=== PATIENT | male | born 1940 | race Asian ===

== ENCOUNTER 2023-10-03 20:20 | Inpatient (IN) | payer MEDICARE, SELFPAY ==
[2023-10-03 17:49] VITALS: BP 124/90
--- NOTE | 2023-10-03 18:09 | EDRN ---
Desire HASKINS in room w/ pt at this time.
--- NOTE | 2023-10-03 18:10 | ED.GENMED ---
History of Present Illness
<Omaira Diaz, BINDERY OPERATOR - Last Filed: 10/04/23 02:58>
General
Chief Complaint: Breathing Problem
Source: patient and family (Daughter at bedside)
Time Seen by Provider: 10/03/23 18:04
Nursing documentation reviewed up to this point in time: agreed with
Travel History
Have you had any contact with someone who has COVID-19?: No
Do you have any symptoms of coronavirus? Fever > 100 degrees, chills, cough, shortness of breath, sore throat, loss of taste or smell, muscle aches, or headache?: Yes
Symptoms:: SOB
History of Present Illness
History of Present Illness:
83-year-old male with history of HTN, no cardiac history, who lives in [place] is visiting his daughter who just had a baby. He plans on staying for 2 months. He has had a cough, sneezing for the past week. Two hours ago, developed onset of
worsening shortness of breath and mid chest pressure. At this time he is saying he has pressure in his chest. He denies N/V/D/C. Denies abdominal pain.
Past History
<Omaira Diaz, BINDERY OPERATOR - Last Filed: 10/04/23 02:58>
Past History
ED Past Medical History: HTN and Other (BPH)
ED Past Surgical History: Cholecystectomy
Social History
Tobacco: Non-smoker
Alcohol: None
Personal:
Living: with family
Employment: Retired
Review of Systems
<Omaira Diaz, BINDERY OPERATOR - Last Filed: 10/04/23 02:58>
Review of Systems
Allergies reviewed?: Yes
All Other Systems: ROS reviewed and negative except as documented in HPI and ROS
Constitutional: Reports fatigue; Denies fever
Respiratory: Reports trouble breathing
Cardiac: Reports chest pain
ABD/GI: Denies abdominal pain, nausea, vomiting or diarrhea
: Denies dysuria, frequency, difficulty voiding or urgency
Musculoskeletal: Reports no symptoms
Skin: Reports no symptoms
Neurological: Reports no symptoms
Phy Exam
<Omaira Diaz BINDERY OPERATOR - Last Filed: 10/04/23 02:58>
Physical Exam
Physical Exam:
GENERAL: Mild to moderate distress distress with shortness of breath. A&Ox3.
CONSTITUTIONAL: Afebrile.
EYES: PERRL, conjunctivae normal
Neck: Supple
ENMT: moist mucus membranes, Pharynx nl
RESPIRATORY: Regular respirations, labored, lungs clear. Pulse ox 95% room air
CARDIOVASCULAR: Regular rate and rhythm, tachycardic with a rate of 115, no murmurs, no rubs.
GI: Soft, nontender, normal BS
MUSCULOSKELETAL: Moves with ease. Well perfused. No edema
SKIN: Warm, dry, pink
PSYCH: Anxious mood and affect. Well kept, interactive and appropriate
NEUROLOGIC: Awake, alert and oriented. No focal neurological deficits
Scores
<Omaira Diaz, BINDERY OPERATOR - Last Filed: 10/04/23 02:58>
Heart Failure Risk
Heart Failure Risk Score: Yes
History of Stroke or TIA: No
History of intubation for respiratory distress: No
Heart rate on ED arrival >/= 110: Yes
SaO2 <90% on arrival on room air: No
HR >/=110 during 3min walk test (or too ill to perform test): Yes
ECG has acute ischemic changes: No
Urea >/=12mmol/L (BUN 33.6mg/dL): No
Serum CO2>/=35mmol/L: No
Troponin I or T elevated to [place] Level (0.4mg/dL): No
NT-proBNP >/=5,000ng/L (5,000pg/ml): No
HF Risk Score: 2
Admission Status: MEDIUM RISK 9.2% Consider observation or discharge to home with homecare & f/u visit to PCP/Social Insurance Analyst, or SNF for treatment
Course
<Omaira Diaz NP - Last Filed: 10/04/23 02:58>
Orders/Labs/Results
Orders:
Orders
10/03/23 17:53
EKG [Electrocardiogram (*1)] Urgent
Reason for Study: Shortness of Breath
EKG- Treatment ONCE
10/03/23 18:11
CR Chest Portable - 1 View Urgent
Comment:
Reason For Exam: CP, SOB
Reason Study Needs to be Portable: Patient Unstable
10/03/23 18:14
Complete Blood Count/With Diff Urgent
Comprehensive Metabolic Panel Urgent
NT-proBNP Urgent
PTT Urgent
Prothrombin Time Urgent
TSH Urgent
Troponin I Q3H
10/03/23 18:21
COVID-19 Antigen Urgent
Source: Nasal Swab
Influenza A+B Rapid Molecular Urgent
GIULIA Source: Nasal Swab
Specimen Description:
10/03/23 18:22
Aspirin Chewable [Low Strength Aspirin] 324 mg PO NOW STA
Nitroglycerin Sublingual [Nitrostat (Sublingual)] 0.4 mg SL NOW STA
10/03/23 18:25
0.9% Sodium Chloride 500 ml [Nss] 500 ml IV BOLUS
10/03/23 19:09
Furosemide [Lasix] 40 mg IV NOW STA
10/03/23 20:04
Ipratropium/Albuterol Sulfate [Duoneb] 3 ml INH R NOW ONE
10/03/23 20:05
Admit/Transfer Patient As Directed
Co-Sign Provider:
Level of Care: Inpatient admission
Assign to:: IMU- Intermediate Care
Physician / Group: Colin
Diagnosis: Atypical Pneumonia
Reason for Hospitalization: Atypical Pneumonia
Expected length of stay greater than two midnights?: Yes
ELOS- Estimated Length of Stay in days: 3
I certify the patient meets the requirements for IP care: Yes
CefTRIAXone [Rocephin] 1,000 mg IV NOW STA
Doxycycline Hyclate [Vibramycin] 100 mg 0.9% Sodium Chloride 250 ml [Nss] 250 ml IV NOW
Sterile Water [Sterile Water For Injection] 10 ml IV NOW STA
10/03/23 20:06
Code Status As Directed
Resuscitation Status: Full Code
10/03/23 21:23
Troponin I Q3H
10/03/23 22:05
Acetaminophen [Tylenol] 650 mg PO Q4HPRN PRN
Albuterol Nebs [Ventolin Nebules] 2.5 mg INH R Q4HPRN PRN
10/03/23 22:05
Activity As Directed
Activity Level: Ambulate
With Assistance
Bladder Scan As Directed
Follow Bladder Retention/Intermittent Cath Algorithm?: Yes
PRN if no void in __ hours: 6
Frequency: Per Retention Algorithm
If Bladder Scan Result >: 400
then:: Straight cath
EKG with chest pain [ECG as needed] As Directed
ECG as needed for:: Chest Pain
I/O [Intake/ Output] As Directed
Frequency: Per unit guidelines
Straight Cath As Directed
Frequency: Per Retention Algorithm
Additional Instructions: straight cath as needed per acute urinary retention algorithm for 24 hrs
Additional Instructions: for bladder scan greater than 400 mL
Vital Signs As Directed
Frequency: Per unit guidelines
Weight As Directed
Frequency: Daily
Chest PT [Rx Chest Pt] [RESP] Routine
Special Instructions: BID
Oxygen Therapy [O2 Therapy] [RESP] Routine
Titrate/Wean O2 to maintain O2 sat greater than (%): 94
Rx Incentive Spirometry [RESP] Routine
Frequency: q1h while awake
Ot Eval And Treat Routine
PT Consult [Pt Eval And Treat] Routine
Activity Level: Ambulate
With Assistance
DX Deep Vein Thrombosis Video Routine
10/04/23 04:05
Troponin I Q6H
10/04/23 06:00
EKG [Electrocardiogram (*1)] IN AM
Reason for Study: Chest Pain
Regular
At Your Request: Limited Participation
Fluid Restriction: 1440 mL/day (48 oz)
Basic Metabolic Panel IN AM
Complete Blood Count/No Diff IN AM
10/04/23 08:00
Amlodipine [Norvasc] 10 mg PO DAILY
Doxycycline [Vibramycin] 100 mg PO Q12
Guaifenesin [Mucinex] 1,200 mg PO Q12
10/04/23 18:00
Enoxaparin Sodium [Lovenox] 40 mg SC QPM
Tamsulosin [Flomax] 0.4 mg PO QPM
10/04/23 20:00
CefTRIAXone [Rocephin] 1,000 mg IV Q24H
10/06/23 11:00
DC Protocol for Telemetry ONCE
Abnormal Lab Results
10/03/23
18:14
WBC 11.0 H 10^3/uL
(4.8-10.8)
RBC 4.66 L 10^6/uL
(4.70-6.10)
Absolute Neuts (auto) 8.4 H 10^3/uL
(1.4-6.5)
Absolute Monos (auto) 0.7 H 10^3/uL
(0.1-0.6)
Neutrophils % 76.1 H %
(42.2-75.2)
Lymphocytes % 14.9 L %
(20.5-51.1)
Carbon Dioxide 19 L mmol/L
(22-30)
Glucose 139 H mg/dl
(70-99)
10/03/23 18:14
10/03/23 18:14
Vital Signs
Initial and Last Documented VS:
Initial Vital Signs
Temp Pulse Resp BP Pulse Ox
97.4 F 117 30 124/90 95
10/03/23 17:49 10/03/23 17:49 10/03/23 17:49 10/03/23 17:49 10/03/23 17:49
Last Documented Vital Signs
Temp Pulse Resp BP Pulse Ox
98.3 F 110 23 139/79 97
10/03/23 23:27 10/03/23 21:45 10/03/23 21:45 10/03/23 21:00 10/03/23 22:07
Seismic Prospecting Supervisor consulted with Physician
Seismic Prospecting Supervisor consulted with physician?: Yes
Name of Physician Consulted: Geraldo
<Piyush Chow, DO - Last Filed: 10/03/23 20:29>
Orders/Labs/Results
Orders:
Orders
10/03/23 17:53
EKG [Electrocardiogram (*1)] Urgent
Reason for Study: Shortness of Breath
EKG- Treatment ONCE
10/03/23 18:11
CR Chest Portable - 1 View Urgent
Comment:
Reason For Exam: CP, SOB
Reason Study Needs to be Portable: Patient Unstable
10/03/23 18:14
Complete Blood Count/With Diff Urgent
Comprehensive Metabolic Panel Urgent
NT-proBNP Urgent
PTT Urgent
Prothrombin Time Urgent
TSH Urgent
Troponin I Q3H
10/03/23 18:21
COVID-19 Antigen Urgent
Source: Nasal Swab
Influenza A+B Rapid Molecular Urgent
GIULIA Source: Nasal Swab
Specimen Description:
10/03/23 18:22
Aspirin Chewable [Low Strength Aspirin] 324 mg PO NOW STA
Nitroglycerin Sublingual [Nitrostat (Sublingual)] 0.4 mg SL NOW STA
10/03/23 18:25
0.9% Sodium Chloride 500 ml [Nss] 500 ml IV BOLUS
10/03/23 19:09
Furosemide [Lasix] 40 mg IV NOW STA
10/03/23 20:04
Ipratropium/Albuterol Sulfate [Duoneb] 3 ml INH R NOW ONE
10/03/23 20:05
Admit/Transfer Patient As Directed
Co-Sign Provider:
Level of Care: Inpatient admission
Assign to:: IMU- Intermediate Care
Physician / Group: Colin
Diagnosis: Atypical Pneumonia
Reason for Hospitalization: Atypical Pneumonia
Expected length of stay greater than two midnights?: Yes
ELOS- Estimated Length of Stay in days: 3
I certify the patient meets the requirements for IP care: Yes
CefTRIAXone [Rocephin] 1,000 mg IV NOW STA
Doxycycline Hyclate [Vibramycin] 100 mg 0.9% Sodium Chloride 250 ml [Nss] 250 ml IV NOW
Sterile Water [Sterile Water For Injection] 10 ml IV NOW STA
10/03/23 20:06
Code Status As Directed
Resuscitation Status: Full Code
10/03/23 21:23
Troponin I Q3H
10/03/23 22:05
Acetaminophen [Tylenol] 650 mg PO Q4HPRN PRN
Albuterol Nebs [Ventolin Nebules] 2.5 mg INH R Q4HPRN PRN
10/03/23 22:05
Activity As Directed
Activity Level: Ambulate
With Assistance
Bladder Scan As Directed
Follow Bladder Retention/Intermittent Cath Algorithm?: Yes
PRN if no void in __ hours: 6
Frequency: Per Retention Algorithm
If Bladder Scan Result >: 400
then:: Straight cath
EKG with chest pain [ECG as needed] As Directed
ECG as needed for:: Chest Pain
I/O [Intake/ Output] As Directed
Frequency: Per unit guidelines
Straight Cath As Directed
Frequency: Per Retention Algorithm
Additional Instructions: straight cath as needed per acute urinary retention algorithm for 24 hrs
Additional Instructions: for bladder scan greater than 400 mL
Vital Signs As Directed
Frequency: Per unit guidelines
Weight As Directed
Frequency: Daily
Chest PT [Rx Chest Pt] [RESP] Routine
Special Instructions: BID
Oxygen Therapy [O2 Therapy] [RESP] Routine
Titrate/Wean O2 to maintain O2 sat greater than (%): 94
Rx Incentive Spirometry [RESP] Routine
Frequency: q1h while awake
Ot Eval And Treat Routine
PT Consult [Pt Eval And Treat] Routine
Activity Level: Ambulate
With Assistance
DX Deep Vein Thrombosis Video Routine
10/04/23 04:05
Troponin I Q6H
10/04/23 06:00
EKG [Electrocardiogram (*1)] IN AM
Reason for Study: Chest Pain
Regular
At Your Request: Limited Participation
Fluid Restriction: 1440 mL/day (48 oz)
Basic Metabolic Panel IN AM
Complete Blood Count/No Diff IN AM
10/04/23 08:00
Amlodipine [Norvasc] 10 mg PO DAILY
Doxycycline [Vibramycin] 100 mg PO Q12
Guaifenesin [Mucinex] 1,200 mg PO Q12
10/04/23 18:00
Enoxaparin Sodium [Lovenox] 40 mg SC QPM
Tamsulosin [Flomax] 0.4 mg PO QPM
10/04/23 20:00
CefTRIAXone [Rocephin] 1,000 mg IV Q24H
10/06/23 11:00
DC Protocol for Telemetry ONCE
Abnormal Lab Results
10/03/23
18:14
WBC 11.0 H 10^3/uL
(4.8-10.8)
RBC 4.66 L 10^6/uL
(4.70-6.10)
Absolute Neuts (auto) 8.4 H 10^3/uL
(1.4-6.5)
Absolute Monos (auto) 0.7 H 10^3/uL
(0.1-0.6)
Neutrophils % 76.1 H %
(42.2-75.2)
Lymphocytes % 14.9 L %
(20.5-51.1)
Carbon Dioxide 19 L mmol/L
(22-30)
Glucose 139 H mg/dl
(70-99)
10/03/23 18:14
10/03/23 18:14
Vital Signs
Initial and Last Documented VS:
Initial Vital Signs
Temp Pulse Resp BP Pulse Ox
97.4 F 117 30 124/90 95
10/03/23 17:49 10/03/23 17:49 10/03/23 17:49 10/03/23 17:49 10/03/23 17:49
Last Documented Vital Signs
Temp Pulse Resp BP Pulse Ox
98.3 F 110 23 139/79 97
10/03/23 23:27 10/03/23 21:45 10/03/23 21:45 10/03/23 21:00 10/03/23 22:07
<Omaira Diaz NP - Last Filed: 10/04/23 02:58>
MDM/Problems Addressed
Differential Diagnosis Includes:
UT, CHF, PNA, Covid
MDM/Problems Addressed:
83-year-old male with history of HTN, no cardiac history, who lives in [place] is visiting his daughter who just had a baby. He plans on staying for 2 months. He has had a cough, sneezing for the past week. Two hours ago, developed onset of
worsening shortness of breath and mid chest pressure. At this time he is saying he has pressure in his chest. He denies N/V/D/C. Denies abdominal pain.
EKG: Tachycardia, LBBB
Consulted Dr. Chow who read EKG
EKG sent to Cardiology Dr. Bergman who agrees, no STEMI
10/03/2023 1908 PM
Patient states his chest pain is about 50% relieved after nitroglycerin
CBC without clinically significant abnormality
CMP with no clinically significant abnormality
Troponin #1 normal
BNP 2019
10/03/2023 1934 PM
Chest x-ray consistent with CHF, new onset
Hospitalist notified of admission
10/03/20232022 PM
RN reports patient diaphoretic and restless, tachycardic
Arrived to find patient very anxious, moving around in the bed, heart rate 126 and regular on the monitor, pulse ox 95% while he is getting a nebulization treatment via oxygen mask
Dr. Chow at bedside
Respiratory therapy in to apply BiPAP
Patient vacillating between being extremely anxious and restless and diaphoretic to more calm, maintaining oxygen at 95% the entire time.
Ativan 0.5 mg ordered
Critical care statement: A total of 40 minutes of critical care time was provided for this patient. This includes management of unstable vital signs, evaluation of the patient at bedside, reviewing the patient's pertinent medical records, discussion
with consultants, review of old EKGs and review of pertinent medical records. This time with separate from time utilized to perform the aforementioned documented procedures
Daughter at bedside states 'he would want everything done' when asked if he would want to be intubated if needed.
10/03/20232041 PM
After BiPAP applied, Ativan given, patient appears much more calm, heart rate improving at 112 continues to be well oxygenated.
Admit to IMU
Chronic conditions affecting care: HTN
<Omaira Diaz NP - Last Filed: 10/04/23 02:58>
*Critical Care Note
Total Time (30-74mins, 75-104mins- exclusive of procedures): Not Applicable
<Omaira Diaz, BINDERY OPERATOR - Last Filed: 10/04/23 02:58>
Patient Management
Social determinants of health affecting care: Strong social support
ED Attending Note
<Omaira Diaz, BINDERY OPERATOR - Last Filed: 10/04/23 02:58>
-
Portions of this chart may have been created with voice recognition software.� Occasional wrong word or��sound alike� substitutions may have occurred due to the inherent limitations of voice recognition software.
<Piyush Chow DO - Last Filed: 10/03/23 20:29>
ED Attending Note
Patient seen and examined by attending physician: Yes
ED Attending Note:
I have reviewed and agree with history and treatment plan by Jessica diaz. Patient with acute CHF, bilateral pulmonary edema. Patient had episode of worsening, which improved somewhat, but will place him on BiPAP. Hospitalist has admitted patient.
Discharge Plan
Departure
Patient Disposition: Admit
Date of Disposition: 10/03/23
Time of Disposition: 19:33
Admit to: IMU
Presentation/result/management discussed w/ accepting MD/DO: Hospitalist
Condition: Fair
Covid-19: Negative COVID-19
Discharge Problem:
New onset of congestive heart failure
Interventions
Interventions:
*Risk Screen - Suicide Last Done: 10/03/23 22:50
*General Assessment Last Done: 10/03/23 17:49
*Neglect/Abuse Screening Last Done: 10/03/23 22:09
ED- Fall Risk Assessment Last Done: 10/03/23 19:46
*ED COVID-19 Vaccine History Last Done: 10/03/23 22:50
*Nursing Disposition Last Done: 10/03/23 22:09
ED- Cardiac Assessment Last Done: 10/03/23 19:46
ED- Pulmonary Assessment Last Done: 10/03/23 19:46
Discharge Date and Time
Discharge Date/Time: 10/03/23 22:10
[2023-10-03 18:26] LABS: % Basophils 1.1 % (0-2); % Eosinophils 1.5 % (0-6); % Immature Granulocytes 0.3 % (0-0.5); % Lymphocytes 14.9 % (20.5-51.1); % Monocytes 6.1 % (1.7-9.3); % Neutrophils 76.1 % (42.2-75.2); Absolute Basophils 0.1 10^3/uL (0-0.2); Absolute Eosinophils 0.2 10^3/uL (0-0.7); Absolute Lymphocytes 1.6 10^3/uL (1.2-3.4); Absolute Monocytes 0.7 10^3/uL (0.1-0.6); Absolute Neutrophils 8.4 10^3/uL (1.4-6.5); Hematocrit 42.1 % (39.0-52.0); Hemoglobin 14.4 g/dL (13.0-18.0); Mean Corp Hgb Conc. 34.2 g/dL (33.0-37.0); Mean Corpuscular Hgb 30.9 pg (27.0-31.0); Mean Corpuscular Volume 90.3 fL (80.0-94.0); Mean Platelet Volume 9.6 fL (7.4-10.4); Nucleated Red Blood Cells % 0 % (-); Platelet Count 243 10^3/uL (130-400); Red Blood Cell Count 4.66 10^6/uL (4.70-6.10); Red Cell Dist. Width 13.5 % (11.5-14.5)
[2023-10-03] MEDS: NSS 500 IV (18:30)
[2023-10-03] MEDS: NITROSTAT (SUBLINGUAL) 0.400000000000000022 MG SL (18:31)
[2023-10-03] MEDS: LOW STRENGTH ASPIRIN 324 MG PO (18:31)
[2023-10-03 18:39] LABS: INR 1.03; PT 13.3 Sec (11.4-14.6)
[2023-10-03 18:40] LABS: APTT 28.6 Sec (23.4-35.0)
[2023-10-03 18:43] LABS: ALT (SGPT) 32 U/L (0-50); AST (SGOT) 46 U/L (17-59); Albumin 4.1 g/dl (3.5-5.0); Alkaline Phosphatase 110 U/L (38-126); Blood Urea Nitrogen 13 mg/dl (9-20); Calcium 8.7 mg/dl (8.4-10.2); Carbon Dioxide 19 mmol/L (22-30); Chloride 106 mmol/L (98-107); Glucose 139 mg/dl (70-99); Potassium 3.6 mmol/L (3.5-5.1); Sodium 135 mmol/L (135-145); Total Bilirubin 1.2 mg/dl (0.2-1.3); Total Protein 7.1 g/dl (6.3-8.2); eGFR > 60.00
[2023-10-03 18:46] LABS: NT-proBNP 2020 pg/ml; Troponin I < 0.012 ng/ml
[2023-10-03 18:51] LABS: COVID-19 Antigen Negative (Negative)
[2023-10-03 19:00] VITALS: BP 142/86
[2023-10-03 19:10] LABS: TSH 3.01 uIU/ml (0.47-4.68)
[2023-10-03 19:33] VITALS: BP 133/80
[2023-10-03] MEDS: LASIX 40 MG IV (19:34)
[2023-10-03 20:00] VITALS: BP 138/84
--- NOTE | 2023-10-03 20:09 | HPS.HSE ---
Family Physician
-
Family Physician: NOT KNOW UNKNOWN - PT DOES
Chief Complaint
-
SOB
History of Present Illness
Patient is an 83y M with PMH significant for hypertension who presents to ED complaining of cough and SOB. History obtained from patient and family at the bedside. Patient is very [place] and family assists with providing recent history. Patient
has been dealing with 'cold symptoms' for the past week or so including runny nose, cough, mucus production, etc. He is visiting the area from [place] for the of a grandchild. This evening, patient complained of difficulty breathing and sensation
of chest 'tightness'. He presented to the ED for further evaluation. He has noted audible wheezing at the bedside and mild respiratory distress at the moment.
Patient denies any associated GI symptoms, complaints, fevers / chills, etc.
No known sick contacts.
Medical History
Past Medical History
Past Medical History: Reports Other
Additional Past Medical History:
Hypertension
Hearing Loss
Past Surgical History: Reports Other
Additional Past Surgical History:
Cataracts
Cholecystectomy
Social History
Tobacco: Non-smoker
Alcohol: Occasional
Drug: None
Family History
Family History: Not pertinent
Allergies / Home Medications
Allergies reflects when Allergies were last updated in [facility].
Home Medications with original date entered in [facility]
Allergy/Medication List:
Allergies
Allergy/AdvReac Type Severity Reaction Status Date / Time
No Known Allergies Allergy Unverified 10/03/23 17:52
Home Medications
acetaminophen 325 mg tablet 650 mg PO HS 10/03/23
amlodipine 5 mg tablet 10 mg PO DAILY 10/03/23
[id number]-YN 0.4 mg-calcium 162 mg-iron 18 vi-xhvzpup-rrygzo tablet 1 tab PO DAILY 10/03/23
tamsulosin 0.4 mg capsule 0.4 mg PO QPM 10/03/23
Review of Systems
-
History Source: Patient and Family
A 12 point ROS was completed and negative except as noted: Yes
Constitutional: Reports Fatigue; Denies Fever or Chills
EENT: Reports Sore Throat and Runny Nose
Respiratory: Reports Cough and Trouble Breathing; Denies Hemoptysis
Cardiac: Reports Chest Pain; Denies Diaphoresis, Palpitations or Syncope
Abdomen/GI: Denies Abdominal Pain, Nausea, Vomiting or Diarrhea
: Denies Dysuria, Frequency or Flank Pain
Musculoskeletal: Denies Joint Pain or Edema
Neurological: Reports Headache; Denies Dizzy
Psych: Denies Depression or Anxiety
Physical Exam
Vital Signs
Vital Signs
Temp Pulse Resp BP Pulse Ox
97.4 F 100 30 133/80 95
10/03/23 17:49 10/03/23 19:34 10/03/23 17:49 10/03/23 19:34 10/03/23 17:49
Physical Exam
General: Other (83y M in mild respiratory distress with audible wheezing at the bedside.)
HEENT: Moist mucous membranes and PERRLA
Respiratory: Other (Coarse expiratory breath sounds diffusely and audible wheezing. No rales.)
Cardiac: S1/S2, Regular Rhythm and Tachycardia; No Murmur
GI: Soft, Non Tender, Non Distended and Normal Bowel Sounds
Musculoskeletal: No Clubbing, No Cyanosis and No Edema
Neuro: AO x 3
Laboratory Results
-
10/03/23 18:14
10/03/23 18:14
Laboratory Results
PT 13.3 Sec (11.4-14.6) 10/03/23 18:14
INR 1.03 10/03/23 18:14
APTT 28.6 Sec (23.4-35.0) 10/03/23 18:14
Total Bilirubin 1.2 mg/dl (0.2-1.3) 10/03/23 18:14
AST 46 U/L (17-59) 10/03/23 18:14
ALT 32 U/L (0-50) 10/03/23 18:14
Alkaline Phosphatase 110 U/L (38-126) 10/03/23 18:14
Troponin I < 0.012 ng/ml 10/03/23 18:14
Impression/Plan
-
A/P: Patient is an 83y M with PMH significant for hypertension who presents to ED complaining of SOB and chest tightness after one week of cold symptoms.
Atypical Pneumonia
- Admit for further evaluation and treatment.
- Patient presents with one week of cold symptoms, coarse expiratory sounds on exam and mild leukocytosis with left shift.
- Clinical history suggestive of atypical pneumonia > CHF. No exam evidence of volume overload.
- IV abx for now for atypical bacteria v viral pneumonia.
- COVID / Influenza negative in the ED.
- Supportive care including nebs, mucolytics, O2 support, etc.
- Follow for clinical improvement.
Chest Tightness
- Suspect this is secondary to cough / congestion as noted above.
- Initial troponin is undetectable - will continue to trend.
- EKG with sinus tach and no acute ischemic changes.
- Monitor for any new / worsening symptoms.
Benign Hypertension
- Stable. Continue amlodipine with holding parameters.
DVT Prophylaxis: Lovenox
Code Status: Full
[2023-10-03] MEDS: DUONEB 3 ML INH (20:16)
[2023-10-03 20:27] VITALS: PULSE 120; PULSE 2
[2023-10-03] MEDS: ROCEPHIN 1000 MG IV (20:30)
[2023-10-03] MEDS: ATIVAN 0.5 MG IV (20:30)
[2023-10-03] MEDS: STERILE WATER FOR INJECTION 10 ML IV (20:37)
[2023-10-03] MEDS: VIBRAMYCIN 260 MG IV (20:41)
[2023-10-03 21:00] VITALS: BP 139/79
[2023-10-03 22:04] LABS: Troponin I 0.026 ng/ml
--- NOTE | 2023-10-03 23:55 | PTCARENOTE ---
Received Pt from ED RN and RT. Pt on BIPAP 10/6 on 3L appeared to be tolerating well, SPO2@ 97%. Pt Granddaughter at bed side to help with language barrier and better communication. Assessment care and vitals as documented.
[2023-10-04] VITALS (14 sets, daily range): BP systolic 109–142; BP diastolic 65–90; PULSE 2–129; O2SAT 94; BMI 25.8
[2023-10-04 05:20] LABS: Hematocrit 41.1 % (39.0-52.0); Hemoglobin 13.9 g/dL (13.0-18.0); Mean Corp Hgb Conc. 33.8 g/dL (33.0-37.0); Mean Corpuscular Hgb 30.2 pg (27.0-31.0); Mean Corpuscular Volume 89.2 fL (80.0-94.0); Mean Platelet Volume 9.8 fL (7.4-10.4); Platelet Count 249 10^3/uL (130-400); Red Blood Cell Count 4.61 10^6/uL (4.70-6.10); Red Cell Dist. Width 13.2 % (11.5-14.5); White Blood Cell Count 9.9 10^3/uL (4.8-10.8)
[2023-10-04 05:37] LABS: Troponin I 0.033 ng/ml
[2023-10-04 05:43] LABS: Blood Urea Nitrogen 11 mg/dl (9-20); Calcium 8.1 mg/dl (8.4-10.2); Carbon Dioxide 20 mmol/L (22-30); Chloride 107 mmol/L (98-107); Estimated Creatinine Clearance 56 ml/min; Glucose 98 mg/dl (70-99); Potassium 3.5 mmol/L (3.5-5.1); Sodium 137 mmol/L (135-145); eGFR > 60.00
--- NOTE | 2023-10-04 07:18 | W.PN.HOSP.TC ---
Today's Communication/Plan
-
Xopenex scheduled and PRN
Robitussin DM and Tessalon prn added for cough
Cardio eval requested
cont abx
check CT chest
Assessment / Plan
Assessment / Plan
Physical Exam
General: No acute distress resting comfortably in bed
HEENT: Moist mucous membranes and PERRLA
Respiratory: Expiratory Wheeze on nasal cannula 3L coughing
Cardiac: S1/S2 Tachycardia; No Murmur, distant heart sounds
GI: Soft, Non Tender, Non Distended and Normal Bowel Sounds
Musculoskeletal: No Clubbing, No Cyanosis and No Edema
Neuro: Alert Awake Conversant
A/P:� Patient is an 83y M with PMH significant for hypertension who presents to ED complaining of SOB and chest tightness after one week of cold symptoms.
Atypical Pneumonia
Acute Hypoxic Insufficiency/Failure
Bronchospastic wheezing possible COPD exacerbation (no hx COPD noted)
�- Admitted to IMU. on BIPAP overnight, requiring 3L NC not on oxygen at home
�- IV abx for now for atypical bacteria v viral pneumonia.
�- COVID / Influenza negative in the ED.
�- Supportive care including nebs, mucolytics, O2 support
�- Xopenex scheduled and prn
-Check CT Chest for possible PE, intermittently tachy but stable on 3L at this time
-cont abx ceftriaxone doxycycline
-Check Legionella Strep pna urinary antigens
Chest Tightness
�- Suspect this is secondary to cough / congestion as noted above.
�- Troponin neg x 3
�- EKG with sinus tach and no acute ischemic changes.
Possible HF as suggested on CXR and elevated BNP
-appears evulemic however on examination
-BNP elevation may be attributed to infection
-Cardio eval requested
Benign Hypertension
�- Stable.� Continue amlodipine with holding parameters.
DVT Prophylaxis:� Lovenox
GI PPX: protonix
Code Status:� Full
discussed with patient, patient's Granddaughter Madyson, Nurse, and Cardiology
I spent a total of 55 minutes with the patient or on the floor. More than 50% of this time involved counseling and coordination of care.
Anticipated Discharge: 24 - 48 hours
Subjective/Interval History
-
Date of Service: October 04, 2023
Seen and examined at bedside in no acute distress resting comfortably in bed. Reports feeling short of breath, saturating well on 3L oxygen. Granddaughter Madyson present during evaluation providing translation South [place] Tagalog
Objective Data
-
Labs:
Laboratory Results
10/04/23
04:46
WBC 9.9
Hgb 13.9
Hct 41.1
Plt Count 249
Sodium 137
Potassium 3.5
Chloride 107
Carbon Dioxide 20 L
BUN 11
Creatinine 0.8
Glucose 98
Calcium 8.1 L
Vital Signs:
Vital Signs
Temp Pulse Resp BP Pulse Ox
98.9 F 88 18 132/83 97
10/04/23 04:17 10/04/23 06:00 10/04/23 06:00 10/04/23 06:00 10/04/23 06:00
I&O
10/03/23 10/04/23 10/05/23
06:59 06:59 06:59
Intake Total 0 / 0
Output Total 50 / 50
Balance -50 / -50
[2023-10-04] MEDS: MUCINEX 1200 MG PO ×2 (09:07→20:45)
[2023-10-04] MEDS: VIBRAMYCIN 100 MG PO ×2 (09:08→20:45)
[2023-10-04] MEDS: NORVASC 10 MG PO (09:08)
[2023-10-04] MEDS: XOPENEX 0.63 MG INHALANT SOLUTION 0.630000000000000004 MG INH ×3 (09:22→20:44)
--- NOTE | 2023-10-04 10:16 | CON.CAR ---
Addendum entered and electronically signed by Rico Sanchez, 10/04/23 14:48:
Addendum:
Update 1446
Echocardiogram demonstrates global hypokinesis LVEF 20-25%, moderate to severe MR, mild AI, mild-mod TR, PASP 48 mmHg, trivial pericardial effusion, and a pleural effusion. Will continue with IV diuresis. Discontinue amlodipine. Start carvedilol
3.125 mg twice daily and uptitrate as tolerated. Strict I/Os, daily weights. Monitor electrolytes. Recommend [facility] Friday to assess new cardiomyopathy. Further recommendations to follow through hospitalization.
Addendum entered and electronically signed by Rico Sanchez, DO 10/04/23 14:08:
I saw and examined the patient.
The Chassis Wirer's note was reviewed and I agree with the note.
Comment:
Very pleasant 83 year old male predominately Tagalog speaking with a history of BPH and hypertension presenting with shortness of breath. Noted cough, congestion concerning for URI. No cp, edema, pnd, orthopnea, or weakness. BNP >2000, CXR
demonstrating cardiomegaly with increased interstitial markings and small BL effusions; EKG SR/ST with LBBB. Reports improvement with IV diuretic. Notes mild persistent SOB. No CP. No prior cardiac testing or evaluation. Troponin negative x3.
Negative covid and flu.
GEN: NAD. AAOx3 with family in room
HEENT: EOMI, MMM; no JVD appreciated
LUNGS: CTA B/L, no wheezes or rales
CV: Reg, S1/S2, no murmur
ABD: soft, BS+, NT, ND
EXT: No clubbing, cyanosis, lesions; trace edema B/L
NEURO: Gross non-focal
SKIN: Warm, dry and pink. No rash
PCP: In [place], [place]
Cardiology: None prior to admission
Impression:
Acute hypoxemic respiratory insufficiency
Possible AE COPD
Acute HF unknown EF
Chest pain
HTN
LBBB of unknown chronicity
Echo 10/04/23: Study pending
Plan:
-Patient came to [facility] last night with complaints of chest pain and SOB and cardiology is now consulted for possible acute HF. Patient lives in [place], [place], but is staying locally with family for the next 2 months after a new great-grandchild was
born recently. Family reports that he seemed to catch a cold last week with coughing and congestion, but no fevers or SOB. Then last night he started to appear winded and complained of SOB and MOORE. No orthopnea and no edema. Family brought him to
[facility] and initially he was given a neb treatment and felt worse. He was then given Lasix 40 mg IV x1, Ativan and put on BiPAP and family reports that he finally started to feel better. There is no h/o CAD or CHF. NO previous cardiac testing. He
remains symptomatically improved this morning.
-pro-BNP was 2020 without previous for comparison. CXR with small B/L pleural effusions and no obvious consolidation to indicate PNA. No fevers.
-Will manage as acute HF. Will give another dose of Lasix 40 mg IV x1 now; reassess in AM.
-Remains hypoxic on 2 L NC.
-Antibiotics also ordered for possible AE COPD.
-Urgent echo ordered and computer systems technology instructor called in. Results pending. No previous echo
-Chest pain resolved with BiPAP and Lasix. Troponin peaked at 0.031. ECG reviewed by me with LBBB of unknown chronicity.
-Outpatient dose of amlodipine 10 mg daily has been continued for now. Consider adjusting regimen and adding BB and IRENE pending echo
Original Note:
Consultation
Consultation Request
Date/Time Consultation Requested: 10/04/23
Date/Time Consultation Performed: 10/04/23
Requesting Provider: Dr. Louie
Performing Provider: Dr. Sanchez
Reason for Consultation: Acute HF
Medical History
-
History of Present Illness:
Patient came to [facility] last night with complaints of chest pain and SOB and cardiology is now consulted for possible acute HF. Patient lives in [place], [place], but is staying locally with family for the next 2 months after a new great-grandchild was
born recently. Family reports that he seemed to catch a cold last week with coughing and congestion, but no fevers or SOB. Then last night he started to appear winded and complained of SOB and MOORE. No orthopnea and no edema. Family brought him to
[facility] and initially he was given a neb treatment and felt worse. He was then given Lasix 40 mg IV x1, Ativan and put on BiPAP and family reports that he finally started to feel better. There is no h/o CAD or CHF. NO previous cardiac testing. He
remains symptomatically improved this morning.
PMH:
HTN
Past Medical History
Past Medical History: Other (in HPI)
Past Surgical History: Cholecystectomy
Social History
Tobacco: Non-Smoker
Alcohol: Occasional
Allergies / Home Medications
Allergy/AdvReac Type Severity Reaction Status Date / Time
No Known Allergies Allergy Unverified 10/03/23 17:52
Medication Instructions Recorded Confirmed Type
acetaminophen 325 mg tablet 650 mg PO HS Pain 10/03/23 10/03/23 History
amlodipine 5 mg tablet 10 mg PO DAILY Blood Pressure 10/03/23 10/03/23 History
[id number]-[id number] 0.4 mg-calcium 162 1 tab PO DAILY Supplement 10/03/23 10/03/23 History
mg-iron 18 hv-rzhqkbr-wlwgab tablet
tamsulosin 0.4 mg capsule 0.4 mg PO QPM Urinary Issue 10/03/23 10/03/23 History
Review of Systems
-
History Source: Patient and Family (granddaughter sitting bedside helps with HPI)
All other systems: Negative unless noted
Physical Exam
Vital Signs
Temp Pulse Resp BP Pulse Ox
98.1 F 92 21 142/85 96
10/04/23 07:15 10/04/23 09:24 10/04/23 09:24 10/04/23 08:00 10/04/23 09:24
GEN: NAD. AAOx3 per granddaughter sitting bedside
HEENT: EOMI, MMM
LUNGS: CTA B/L, no wheezes or rales
CV: Reg, S1/S2, no murmur
ABD: soft, BS+, NT, ND
EXT: No clubbing, cyanosis, lesions or edema B/L
NEURO: Gross non-focal
SKIN: Warm, dry and pink. No rash
Lab Results
10/04/23 04:46
10/04/23 04:46
Troponin I 0.033 ng/ml D 10/04/23 04:47
Drs-J-Vegzxiiltjh Pept 2020 pg/ml 10/03/23 18:14
Impression / Plan
-
PCP: In [place], [place]
Cardiology: None prior to admission
Impression:
Acute hypoxemic respiratory insufficiency
Possible AE COPD
Acute HF unknown EF
Chest pain
HTN
LBBB of unknown chronicity
Echo 10/04/23: Study pending
Plan:
-Patient came to [facility] last night with complaints of chest pain and SOB and cardiology is now consulted for possible acute HF. Patient lives in [place], [place], but is staying locally with family for the next 2 months after a new great-grandchild was
born recently. Family reports that he seemed to catch a cold last week with coughing and congestion, but no fevers or SOB. Then last night he started to appear winded and complained of SOB and MOORE. No orthopnea and no edema. Family brought him to
[facility] and initially he was given a neb treatment and felt worse. He was then given Lasix 40 mg IV x1, Ativan and put on BiPAP and family reports that he finally started to feel better. There is no h/o CAD or CHF. NO previous cardiac testing. He
remains symptomatically improved this morning.
-pro-BNP was 2020 without previous for comparison. CXR with small B/L pleural effusions and no obvious consolidation to indicate PNA. No fevers.
-Will manage as acute HF. Will give another dose of Lasix 40 mg IV x1 now.
-Remains hypoxic on 2 L NC.
-Antibiotics also ordered for possible AE COPD.
-Urgent echo ordered and computer systems technology instructor called in. Results pending. No previous echo
-Chest pain resolved with BiPAP and Lasix. Troponin peaked at 0.031. ECG reviewed by me with LBBB of unknown chronicity.
-Outpatient dose of amlodipine 10 mg daily has been continued for now. Consider adding BB and IRENE pending echo.
[2023-10-04] MEDS: PROTONIX 40 MG PO (11:32)
--- NOTE | 2023-10-04 15:52 | PTCARENOTE ---
Pt presents as assessed. Aox3. Grandaughter at bedside. SR with BBC and Prolonged QT on tele monitor. Sating high 90's on 2L NC. To and from CT via wheelchair. OOB to chair throughout the day. Able to make needs known, call garcía within reach.
[2023-10-04] MEDS: LOVENOX 40 MG SC (18:32)
[2023-10-04] MEDS: FLOMAX 0.400000000000000022 MG PO (18:32)
[2023-10-04] MEDS: COREG 3.125 MG PO (20:44)
[2023-10-04] MEDS: ROCEPHIN 1000 MG IV (20:45)
[2023-10-04] MEDS: STERILE WATER FOR INJECTION 10 ML IV (20:45)
[2023-10-05] VITALS (19 sets, daily range): BP systolic 100–130; BP diastolic 64–93; BMI 25.2
--- NOTE | 2023-10-05 02:39 | PTCARENOTE ---
Assumed care of Pt from day RN. Pt AAOx3 in chair with family at bedside. Pt spo2 96% on 2L NC, vitals stable at this time. Family having questions about 'what is next'. Questions answered about pt being on [place] V bipap and change in medication,
education given and questions answered. Will pass on to have Dr call Granddaughter with test results and changes in plan. Pt and family had no complaints at that time. Assessment care and vitals as charted.
[2023-10-05 04:21] LABS: Hematocrit 37.5 % (39.0-52.0); Hemoglobin 13.1 g/dL (13.0-18.0); Mean Corp Hgb Conc. 34.9 g/dL (33.0-37.0); Mean Corpuscular Hgb 30.8 pg (27.0-31.0); Mean Corpuscular Volume 88.2 fL (80.0-94.0); Mean Platelet Volume 9.7 fL (7.4-10.4); Platelet Count 220 10^3/uL (130-400); Red Blood Cell Count 4.25 10^6/uL (4.70-6.10); Red Cell Dist. Width 13.3 % (11.5-14.5); White Blood Cell Count 6.8 10^3/uL (4.8-10.8)
[2023-10-05 05:01] LABS: Blood Urea Nitrogen 14 mg/dl (9-20); Carbon Dioxide 23 mmol/L (22-30); Chloride 107 mmol/L (98-107); Estimated Creatinine Clearance 50 ml/min; Glucose 100 mg/dl (70-99); HDL Cholesterol 63 mg/dl; LDL Cholesterol, Calculated 51 mg/dl; Magnesium 2.1 mg/dl (1.6-2.3); Phosphorus 4.8 mg/dl (2.5-4.5); Potassium 3.4 mmol/L (3.5-5.1); Sodium 136 mmol/L (135-145); Total Cholesterol 134 mg/dl (50-199); Triglyceride 101 mg/dl (10-149); Very Low Density Lipoprotein 20 mg/dl (0-30); eGFR > 60.00
--- NOTE | 2023-10-05 06:58 | W.PN.HOSP.TC ---
Today's Communication/Plan
-
wean O2 supplementation as tolerated
cont BB ASA
diuresis as per Cardio
cont abx, follow cultures Legionella Strep urinary antigents
npo after midnight for LHC
Assessment / Plan
Assessment / Plan
Physical Exam
General: No acute distress resting comfortably in bed
HEENT: Moist mucous membranes and PERRLA
Respiratory: expiratory wheeze on nasal cannula 2L
Cardiac: S1/S2 Tachycardia; No Murmur, distant heart sounds
GI: Soft, Non Tender, Non Distended and Normal Bowel Sounds
Musculoskeletal: No Clubbing, No Cyanosis and No Edema
Neuro: Alert Awake Conversant
A/P:� Patient is an 83y M Beninese Tagalog speaking with PMH significant for hypertension who presents to ED complaining of SOB and chest tightness after one week of cold symptoms.
Atypical Pneumonia
Acute Hypoxic Insufficiency/Failure
Bronchospastic wheezing possible COPD exacerbation (no hx COPD noted)
�- Admitted to IMU. on BIPAP overnight, requiring 3L NC not on oxygen at home
�- IV abx for now for atypical bacteria v viral pneumonia.
�- COVID / Influenza negative in the ED.
�- Supportive care including nebs, mucolytics, O2 support
�- Xopenex scheduled and prn
-CT chest appreciated no PE, b/l moderate pleural effusion, IR eval appreciated R thoracentesis 1L fluid removed 10/04 transudative, pathology pending
-cont abx ceftriaxone doxycycline
-Check Legionella Strep pna urinary antigens
Chest Tightness resolved
�- Possibly secondary to cough / congestion as noted above vs fluid overload pleural effusion
�-improved with bronchodilators, diuresis as per cardio, abx
- Troponin neg x 3
�- EKG with sinus tach and no acute ischemic changes.
Possible HF as suggested on CXR and elevated BNP, confirmed with ECHO HFrEF
-ECHO appreciated EF 20-25% stage II diastolic dysfunction mod severe MR
-Cardio eval appreciated cont Coreg ASA, npo after midnight for [facility]
Benign Hypertension
�- Stable.� Continue amlodipine with holding parameters.
Mild Hypocalcemia
Vit D wnl
low dose scheduled Calcium supplementation started 10/04
Mild Hypokalemia
replete for goal 4 with diuresis
DVT Prophylaxis:� SCD, Lovenox on hold for [facility] 10/05
GI PPX: protonix
Code Status:� Full
discussed with patient, patient's Granddaughter Madyson, Nurse, and Cardiology
I spent a total of 55 minutes with the patient or on the floor. More than 50% of this time involved counseling and coordination of care.
Anticipated Discharge: 24 - 48 hours
Subjective/Interval History
-
Date of Service: October 05, 2023
No acute distress sitting up comfortably in chair. Reports improvement in symptoms including shortness of breath, chest tightness. present during evaluation providing Tagalog translation.
Objective Data
-
Labs:
Laboratory Results
10/05/23
04:03
WBC 6.8
Hgb 13.1
Hct 37.5 L
Plt Count 220
Sodium 136
Potassium 3.4 L
Chloride 107
Carbon Dioxide 23
BUN 14
Creatinine 0.9
Glucose 100 H
Calcium 8.0 L
Vital Signs:
Vital Signs
Temp Pulse Resp BP Pulse Ox
98.6 F 85 21 125/75 97
10/05/23 03:05 10/05/23 06:00 10/05/23 06:00 10/05/23 06:00 10/05/23 06:00
I&O
10/03/23 10/04/23 10/05/23
06:59 06:59 06:59
Intake Total 0 / 0 250 / 250
Output Total 50 / 50 150 / 150
Balance -50 / -50 100 / 100
[2023-10-05] MEDS: XOPENEX 0.63 MG INHALANT SOLUTION 0.630000000000000004 MG INH ×3 (07:52→19:46)
--- NOTE | 2023-10-05 08:38 | PTCARENOTE ---
Pt AAOx3 very little Ukrainian art bedside to interpret. Called to IR , awaiting transport. Pt is sitting OOB to chair no distress noted (^ % POX on RA
--- NOTE | 2023-10-05 09:45 | W.PN.CARDCBS ---
Today's Communication / Plan
-
NPO after midnight for tentative LHC
Continue BB, uptitrate GDMT pending ischemic eval
I/Os, daily weights
Impression / Plan
-
PCP: In [place], [place]
Cardiology: None prior to admission
Impression:
Acute hypoxemic respiratory insufficiency, improved
Possible AE COPD
Acute HFrEF; new diagnosis
Cardiomyopathy, unclear etiology
Chest pain, in setting of resp distress; troponin negative x3
HTN
LBBB of unknown chronicity
Echo 10/04/23: LVEF 20-25%, global hypokinesis, septal dyskinesis with LBBB; G2DD; dilated LA/RA; mod-sev MR, mild AI, mild-mod TR with PASP 48mmHg, pleural effusion, trivial pericardial effusion
Plan:
-Patient came to [facility] 10/02 with complaints of chest tightness and SOB and cardiology is now consulted for possible acute HF. Patient lives in [place], [place], but is staying locally with family for the next 2 months after a new great-grandchild was
born recently. Family reports that he seemed to catch a cold last week with coughing and congestion, but no fevers or SOB. Then last night he started to appear winded and complained of SOB and MOORE. No orthopnea and no edema. Family brought him to
[facility] and initially he was given a neb treatment and felt worse. He was then given Lasix 40 mg IV x1, Ativan and put on BiPAP and family reports that he finally started to feel better. There is no h/o CAD or CHF. NO previous cardiac testing. He
remains symptomatically improved 10/03.
-pro-BNP was 2020 without previous for comparison. CXR with small B/L pleural effusions and no obvious consolidation to indicate PNA. No fevers.
-Will manage as acute HF. Improved symptoms with IV lasix; additional dose 10/04 40 mg IV lasix
-On 2LNC, wean as tolerated
-Antibiotics also ordered for possible AE COPD.
-Chest pain resolved with BiPAP and Lasix. Troponin peaked at 0.031. ECG reviewed by me with LBBB of unknown chronicity.
-Continue coreg 3.125 mg twice daily; hold amlodipine; start ASA 81 mg daily
-[facility] tentatively 10/05; NPO after midnight, hold heparin ppx overnight; further medical therapy to follow ischemic evaluation
Progress Note - Process Controls Technician
Subjective
Date of Service: October 05, 2023
Patient seen and examined. No acute events overnight. Patient resting comfortably without complaint. No cp, sob, palpitations, or weakness. Tele SR.
Objective
Labs:
10/05/23 04:03
10/05/23 04:03
Labs
Hgb 13.1 g/dL (13.0-18.0) 10/05/23 04:03
Hct 37.5 % (39.0-52.0) L 10/05/23 04:03
Plt Count 220 10^3/uL (130-400) 10/05/23 04:03
PT 13.3 Sec (11.4-14.6) 10/03/23 18:14
INR 1.03 10/03/23 18:14
APTT 28.6 Sec (23.4-35.0) 10/03/23 18:14
Sodium 136 mmol/L (135-145) 10/05/23 04:03
Potassium 3.4 mmol/L (3.5-5.1) L 10/05/23 04:03
BUN 14 mg/dl (9-20) 10/05/23 04:03
Creatinine 0.9 mg/dL (0.7-1.3) 10/05/23 04:03
Glucose 100 mg/dl (70-99) H 10/05/23 04:03
Troponins
10/03/23 10/03/23 10/03/23
18:14 21:23 22:05
Troponin I < 0.012 0.026 D Cancelled
10/04/23
04:47
Troponin I 0.033 D
Vital Signs and I&O:
Vital Signs
Temp Pulse Resp BP Pulse Ox
98.5 F 96 22 118/75 95
10/05/23 08:58 10/05/23 09:30 10/05/23 09:30 10/05/23 09:30 10/05/23 08:58
Vital Signs
Temp Pulse Resp BP Pulse Ox
98.5 F 96 22 118/75 95
10/05/23 08:58 10/05/23 09:30 10/05/23 09:30 10/05/23 09:30 10/05/23 08:58
Intake & Output
10/03/23 10/04/23 10/05/23 10/06/23
06:59 06:59 06:59 06:59
Intake Total 0 / 0 250 / 250
Output Total 50 / 50 150 / 150
Balance -50 / -50 100 / 100
Physical Exam
Physical Exam
GEN: NAD. AAOx3 with family in room
HEENT: EOMI, MMM; no JVD appreciated
LUNGS: CTA B/L, no wheezes or rales
CV: Reg, S1/S2, no murmur
ABD: soft, BS+, NT, ND
EXT: No clubbing, cyanosis, lesions; trace edema B/L
NEURO: Gross non-focal
SKIN: Warm, dry and pink. No rash
[2023-10-05 10:00] LABS: Vitamin D, 25-OH*** 37.3 ng/mL (30-80)
[2023-10-05] MEDS: MUCINEX 1200 MG PO ×2 (10:06→20:36)
[2023-10-05] MEDS: ASPIR LOW (ENTERIC COATED) 81 MG PO (10:07)
[2023-10-05] MEDS: COREG 3.125 MG PO ×2 (10:07→20:36)
[2023-10-05] MEDS: OSCAL 500 + D 500 MG PO (10:08)
[2023-10-05] MEDS: PROTONIX 40 MG PO (10:08)
[2023-10-05] MEDS: KCL 40 MEQ PO (10:09)
[2023-10-05] MEDS: VIBRAMYCIN 100 MG PO ×2 (10:09→20:37)
[2023-10-05 10:13] LABS: Body Fluid Mononuclear 97.1 %; Body Fluid Polymorphonuclear 2.9 %; Body Fluid WBC 381 /CUMM
[2023-10-05 10:15] LABS: Body Fluid pH 7.49
[2023-10-05 10:36] LABS: Body Fluid Second Tech EF
[2023-10-05] MEDS: LASIX 40 MG IV (10:40)
[2023-10-05 10:54] LABS: Body Fluid Glucose 110 mg/dl; Body Fluid Protein < 2.0 g/dl; Body Fluid Triglycerides < 30 mg/dl
--- NOTE | 2023-10-05 10:57 | PTCARENOTE ---
Pt returned from [id number] of fluid removed. Pt OOB in chair
[2023-10-05 11:06] LABS: Body Fluid Amylase < 30 U/L; Body Fluid LDH 97 U/L
[2023-10-05] MEDS: FLOMAX 0.400000000000000022 MG PO (17:37)
[2023-10-05] MEDS: STERILE WATER FOR INJECTION 10 ML IV (20:37)
[2023-10-05] MEDS: ROCEPHIN 1000 MG IV (20:37)
[2023-10-06] VITALS (15 sets, daily range): BP systolic 87–125; BP diastolic 51–78; PULSE 86–99; O2SAT 96–98; BMI 25.5
[2023-10-06 04:57] LABS: Hematocrit 41.5 % (39.0-52.0); Hemoglobin 14.1 g/dL (13.0-18.0); Mean Corpuscular Hgb 30.5 pg (27.0-31.0); Mean Corpuscular Volume 89.8 fL (80.0-94.0); Mean Platelet Volume 9.8 fL (7.4-10.4); Platelet Count 220 10^3/uL (130-400); Red Blood Cell Count 4.62 10^6/uL (4.70-6.10); Red Cell Dist. Width 13.4 % (11.5-14.5); White Blood Cell Count 8.1 10^3/uL (4.8-10.8)
[2023-10-06 05:33] LABS: Blood Urea Nitrogen 16 mg/dl (9-20); Calcium 8.6 mg/dl (8.4-10.2); Carbon Dioxide 21 mmol/L (22-30); Chloride 106 mmol/L (98-107); Estimated Creatinine Clearance 50 ml/min; Glucose 110 mg/dl (70-99); Magnesium 1.9 mg/dl (1.6-2.3); Phosphorus 5.1 mg/dl (2.5-4.5); Potassium 3.8 mmol/L (3.5-5.1); Sodium 135 mmol/L (135-145); eGFR > 60.00
--- NOTE | 2023-10-06 06:23 | PTCARENOTE ---
Grandson at bedside overnight. Pt understands Macanese but is extremely hard of hearing, right hearing at bedside. Can be fidgety and somewhat restless in bed. Tele showing NSR/ST w/ BBB. Pt denies any chest pain or SOB. Pt got OOB without calling
x1, attempted to educate pt to press the call button prior to getting up. SCDs on. 2L NC placed for Sp02 of 86-88% on room air at rest... with the 2L pt is >96%. MOORE, shallow breaths,fine crackles at bases. Bed alarm set for safety. Call garcía and
tray table remains within reach.
Pt has been NPO since midnight for cardiac cath.
[2023-10-06] MEDS: XOPENEX 0.63 MG INHALANT SOLUTION 0.630000000000000004 MG INH ×3 (08:12→19:22)
[2023-10-06] MEDS: COREG 3.125 MG PO ×2 (09:41→20:44)
[2023-10-06] MEDS: VIBRAMYCIN 100 MG PO ×2 (09:42→20:44)
[2023-10-06] MEDS: MUCINEX 1200 MG PO ×2 (09:42→20:44)
[2023-10-06] MEDS: ASPIR LOW (ENTERIC COATED) 81 MG PO (09:42)
[2023-10-06] MEDS: OSCAL CAL 500 500 MG PO (09:42)
[2023-10-06] MEDS: PROTONIX 40 MG PO (09:42)
--- NOTE | 2023-10-06 09:56 | PTCARENOTE ---
Pt Cardiac cath resheduled for Friday Pt AAO OOb to chair no distrss noted
--- NOTE | 2023-10-06 10:02 | CM ---
Patient seen at bedside with physician. Patient son in law and daughter here with patient and translating. Patient lives with in [place] in 2 story home, however, currently is in [place] and trying to get a flight home. Patient daughter with new
baby and plan is for patient to go to her home. The daughter stated that the home is a 2 story home but she has patient in first floor setup. Patient has no DME typically and he has been helping with the new baby. Patient PCP is in [place] and he uses
the [facility] on [address] when visiting daughter. CM will continue to follow for discharge planning needs.
Plan; home with daughter; watch for home O2 and VN needs.
--- NOTE | 2023-10-06 10:06 | W.PN.HOSP.TC ---
Today's Communication/Plan
-
left heart cath today
will need home O2 assessment
Assessment / Plan
Assessment / Plan
Patient is an 83y M Libyan Tagalog speaking with PMH significant for hypertension who presents to ED complaining of SOB and chest tightness after one week of cold symptoms.
Acute Hypoxic Insufficiency/Failure due to Atypical Pneumonia, acute COPD exacerbation and acute systolic CHF exacerbation--on 3L O2, will need home O2 assessment--for left heart cath given echo findings--on rocephin and doxy-- COVID/Influenza
negative in the ED- Supportive care including nebs, mucolytics, O2 support�- Xopenex scheduled and prn-CT chest appreciated no PE, b/l moderate pleural effusion, IR eval appreciated R thoracentesis 1L fluid removed 10/04 transudative, pathology
pending -Check Legionella Strep pna urinary antigens
Chest Tightness resolved- Possibly secondary to cough/ congestion as noted above vs fluid overload pleural effusion-improved with bronchodilators, diuresis as per cardio, abx - Troponin neg x 3�- EKG with sinus tach and no acute ischemic changes.
Possible HF as suggested on CXR and elevated BNP, confirmed with ECHO HFrEF--ECHO appreciated EF 20-25% stage II diastolic dysfunction mod severe MR---Cardio eval appreciated cont Coreg ASA, npo after midnight for [facility]
Benign Hypertension- Stable.� Continue amlodipine with holding parameters.
Mild Hypocalcemia/Vit D wnl/low dose scheduled Calcium supplementation started 10/04
Mild Hypokalemia/replete for goal 4 with diuresis
DVT Prophylaxis:� SCD, Lovenox on hold for [facility] 10/05
GI PPX: protonix
Code Status:� Full
Anticipated Discharge: > 48 hours
Subjective/Interval History
-
Date of Service: October 06, 2023
pt without c/o--on O2
Objective Data
-
Labs:
Laboratory Results
10/06/23
04:50
WBC 8.1
Hgb 14.1
Hct 41.5
Plt Count 220
Sodium 135
Potassium 3.8
Chloride 106
Carbon Dioxide 21 L
BUN 16
Creatinine 0.9
Glucose 110 H
Calcium 8.6
Vital Signs:
max temp for 24 hours
10/05/23
23:21
Temp 98.9 F
Vital Signs
Temp Pulse Resp BP Pulse Ox
98.7 F 93 21 111/75 98
10/06/23 07:34 10/06/23 09:41 10/06/23 08:15 10/06/23 09:41 10/06/23 08:15
I&O
10/05/23 10/06/23 10/07/23
06:59 06:59 06:59
Intake Total 250 / 250 960 / 960
Output Total 150 / 150
Balance 100 / 100 960 / 960
Review of Systems
-
All other systems: Reviewed and negative
Physical Exam
-
General: Well Developed, Well Nourished and No Apparent Distress
HEENT: Normocephalic, Atraumatic and Oxygen
Respiratory: Decreased Breath Sounds (bilateral bases)
Cardiac: Regular Rhythm, S1/S2 and Murmur
GI: Soft, Nontender, Nondistended and Normal Bowel Sounds
Musculoskeletal: No Clubbing, No Cyanosis and No Edema
Skin: Warm
Neuro: Awake and Alert
Psych: Calm
--- NOTE | 2023-10-06 14:28 | W.PN.CARDCBS ---
Today's Communication / Plan
-
Left heart catheterization today if schedule allows
We catheterization before giving IV Lasix today but remains on 2 L
Add lisinopril if blood pressure tolerates
Check on cost of Entresto and Jardiance/Farxiga
Updated family at bedside
Impression / Plan
-
PCP: In [place], [place]
Cardiology: None prior to admission
Impression:
Acute hypoxemic respiratory insufficiency, improved
Possible AE COPD
Acute HFrEF; new diagnosis
Cardiomyopathy, unclear etiology
Chest pain, in setting of resp distress; troponin negative x3
HTN
LBBB of unknown chronicity
Echo 10/04/23: LVEF 20-25%, global hypokinesis, septal dyskinesis with LBBB; G2DD; dilated LA/RA; mod-sev MR, mild AI, mild-mod TR with PASP 48mmHg, pleural effusion, trivial pericardial effusion
Plan:
He remains on 2 L of oxygen
Await results of catheterization before giving more Lasix
He is for left heart catheterization to exclude CAD as a cause of cardiomyopathy with left bundle branch block
Continue Coreg. Will add lisinopril if blood pressure tolerates and may consider eventual Entresto but cost may be an issue for Entresto and likely Jardiance/Farxiga
Antibiotics also ordered for possible AE COPD.
PREADMIT DATA
Patient came to [facility] 10[facility] with complaints of chest tightness and SOB and cardiology is now consulted for possible acute HF. Patient lives in [place], [place], but is staying locally with family for the next 2 months after a new great-grandchild was
born recently. Family reports that he seemed to catch a cold last week with coughing and congestion, but no fevers or SOB. Then last night he started to appear winded and complained of SOB and MOORE. No orthopnea and no edema. Family brought him to
[facility] and initially he was given a neb treatment and felt worse. He was then given Lasix 40 mg IV x1, Ativan and put on BiPAP and family reports that he finally started to feel better. There is no h/o CAD or CHF. NO previous cardiac testing. He
remains symptomatically improved 10/03.
Progress Note - Volunteer Firefighter
Subjective
Date of Service: October 06, 2023
No complaints
Objective
Labs:
10/06/23 04:50
10/06/23 04:50
Labs
Hgb 14.1 g/dL (13.0-18.0) 10/06/23 04:50
Hct 41.5 % (39.0-52.0) 10/06/23 04:50
Plt Count 220 10^3/uL (130-400) 10/06/23 04:50
PT 13.3 Sec (11.4-14.6) 10/03/23 18:14
INR 1.03 10/03/23 18:14
APTT 28.6 Sec (23.4-35.0) 10/03/23 18:14
Sodium 135 mmol/L (135-145) 10/06/23 04:50
Potassium 3.8 mmol/L (3.5-5.1) 10/06/23 04:50
BUN 16 mg/dl (9-20) 10/06/23 04:50
Creatinine 0.9 mg/dL (0.7-1.3) 10/06/23 04:50
Glucose 110 mg/dl (70-99) H 10/06/23 04:50
Troponins
10/03/23 10/03/23 10/03/23
18:14 21:23 22:05
Troponin I < 0.012 0.026 D Cancelled
10/04/23
04:47
Troponin I 0.033 D
Vital Signs and I&O:
Vital Signs
Temp Pulse Resp BP Pulse Ox
98.1 F 91 16 124/78 98
10/06/23 11:47 10/06/23 13:46 10/06/23 13:46 10/06/23 10:00 10/06/23 13:46
Vital Signs
Temp Pulse Resp BP Pulse Ox
98.1 F 91 16 124/78 98
10/06/23 11:47 10/06/23 13:46 10/06/23 13:46 10/06/23 10:00 10/06/23 13:46
Intake & Output
10/04/23 10/05/23 10/06/23 10/07/23
06:59 06:59 06:59 06:59
Intake Total 0 / 0 250 / 250 960 / 960
Output Total 50 / 50 150 / 150
Balance -50 / -50 100 / 100 960 / 960
Physical Exam
Physical Exam
General: Well developed, well nourished in NAD.
Neck: Supple, no JVD, HJR, carotids +2 B/L, no bruits bilaterally.
Heart: Non displaced PMI, RRR, no murmurs, No S3, S4, no rubs.
Lungs: Scattered rhonchi
Extremities: No clubbing, cyanosis or edema bilaterally.
Neuro: Grossly nonfocal, awake, alert and oriented x3.
[2023-10-06] MEDS: FLOMAX 0.400000000000000022 MG PO (16:13)
[2023-10-06] MEDS: ZESTRIL 5 MG PO (16:13)
[2023-10-06] MEDS: LASIX 40 MG IV (16:14)
[2023-10-06] MEDS: ROCEPHIN 1000 MG IV (21:47)
[2023-10-06] MEDS: STERILE WATER FOR INJECTION 10 ML IV (21:48)
[2023-10-07] VITALS (21 sets, daily range): BP systolic 94–140; BP diastolic 42–88; BMI 24.7
[2023-10-07 04:28] LABS: Hematocrit 37.6 % (39.0-52.0); Hemoglobin 13.2 g/dL (13.0-18.0); Mean Corp Hgb Conc. 35.1 g/dL (33.0-37.0); Mean Corpuscular Hgb 30.7 pg (27.0-31.0); Mean Corpuscular Volume 87.4 fL (80.0-94.0); Mean Platelet Volume 10.2 fL (7.4-10.4); Platelet Count 211 10^3/uL (130-400); Red Cell Dist. Width 13.5 % (11.5-14.5); White Blood Cell Count 7.8 10^3/uL (4.8-10.8)
--- NOTE | 2023-10-07 04:34 | PTCARENOTE ---
Patient placed on 2L NC overnight while asleep. Sp02 decreased to 83-85% while asleep on RA. Sp02 >96% on the 2L. Lungs without crackles. Denies any chest pain. Up to BR with standby assistance. New IV placed. Pt has been NPO since midnight for
cardiac cath. Sophia at bedside, educated on this. Tele showing NSR w/ BBB. Call garcía and tray table within reach. Bed alarm set. SCDs on. Reiterated to pt to use call garcía prior to getting up. Heart failure packet at bedside.
[2023-10-07 04:45] LABS: Blood Urea Nitrogen 18 mg/dl (9-20); Calcium 8.5 mg/dl (8.4-10.2); Carbon Dioxide 23 mmol/L (22-30); Chloride 105 mmol/L (98-107); Estimated Creatinine Clearance 50 ml/min; Glucose 106 mg/dl (70-99); Magnesium 1.9 mg/dl (1.6-2.3); Phosphorus 5.5 mg/dl (2.5-4.5); Potassium 3.7 mmol/L (3.5-5.1); Sodium 137 mmol/L (135-145); eGFR > 60.00
[2023-10-07] MEDS: XOPENEX 0.63 MG INHALANT SOLUTION 0.630000000000000004 MG INH ×3 (07:24→20:43)
[2023-10-07] MEDS: PROTONIX 40 MG PO (08:15)
[2023-10-07] MEDS: OSCAL CAL 500 500 MG PO (08:15)
[2023-10-07] MEDS: ZESTRIL 5 MG PO ×2 (08:15→20:06)
[2023-10-07] MEDS: MUCINEX 1200 MG PO ×2 (08:15→19:57)
[2023-10-07] MEDS: COREG 3.125 MG PO ×2 (08:15→19:57)
[2023-10-07] MEDS: VIBRAMYCIN 100 MG PO ×2 (08:15→19:57)
[2023-10-07] MEDS: ASPIR LOW (ENTERIC COATED) 81 MG PO (08:15)
--- NOTE | 2023-10-07 09:57 | ITS.CL.CATH ---
Parking Analyst - Catheterization
Cardiac Catheterization
Procedure Report:
CARDIAC CATHETERIZATION REPORT
Date of Procedure: 10/07/2023
Referring: Armand Bergman MD
Indication: Newly diagnosed HFrEF
HEMODYNAMIC DATA (RHC performed at weight 135 pounds)
AO: 118/63
LV: 118/20
PCWP: 19
PA: 44/22
RV: 44/10
RA: 8
Oximetry: Ao 94%, PA 65%, cardiac output 3.5, cardiac index 2.2
LEFT VENTRICULOGRAPHY: Dilated left ventricular with moderate global hypokinesis with EF 35%. There is 2+ mitral regurgitation
CORONARY ANGIOGRAPHY
Dominance: Right
Left Main: Normal
LAD: 20% mid LAD stenosis with otherwise normal LAD proper. The small third diagonal branch has 70% ostial stenosis
Circumflex: Normal
RCA: Large dominant vessel with trivial luminal irregularities
Closure Device: 6 [place] Angio-Seal RFA
Radiation dose (mGy): 142
DAP (cm2.Gy): 14.5
Fluoroscopy time: 1.7 minutes
CONCLUSIONS:
1. Elevated left-sided filling pressures with mild pulmonary hypertension
2. Left ventricular enlargement with moderate global hypokinesis with EF 35%
3. At least moderate mitral regurgitation-the degree of mitral regurgitation may be underestimated due to the enlarged left atrium
4. Mild CAD as described
RECOMMENDATIONS: Recommend GINNA for further evaluation of mitral regurgitation which may be the primary cause of left ventricular dysfunction. Referring director news contacted by text
Copy to: Tyrel Bergman MD
Adiel Crane MD, [facility], [facility]
--- NOTE | 2023-10-07 10:02 | W.PN.HOSP.TC ---
Today's Communication/Plan
-
Left heart cath
d/c planning
Assessment / Plan
Assessment / Plan
Patient is an 83y M French Tagalog speaking with PMH significant for hypertension who presents to ED complaining of SOB and chest tightness after one week of cold symptoms.
Acute Hypoxic Insufficiency/Failure due to Atypical Pneumonia, acute COPD exacerbation and acute systolic CHF exacerbation--OFF O2--for left heart cath given echo findings--on rocephin and doxy-- COVID/Influenza negative in the ED- Supportive care
including nebs, mucolytics, O2 support�- Xopenex scheduled and prn-CT chest appreciated no PE, b/l moderate pleural effusion, IR eval appreciated R thoracentesis 1L fluid removed 10/04 transudative, pathology pending
Chest Tightness resolved- Possibly secondary to cough/ congestion as noted above vs fluid overload pleural effusion-improved with bronchodilators, diuresis as per cardio, abx - Troponin neg x 3�- EKG with sinus tach and no acute ischemic changes.
Possible HF as suggested on CXR and elevated BNP, confirmed with ECHO HFrEF--ECHO appreciated EF 20-25% stage II diastolic dysfunction mod severe MR---Cardio eval appreciated cont Coreg ASA, for [facility]
Benign Hypertension- Stable.� Continue amlodipine with holding parameters.
Mild Hypocalcemia/Vit D wnl/low dose scheduled Calcium supplementation started 10/04
Mild Hypokalemia/replete for goal 4 with diuresis
DVT Prophylaxis:� SCD, Lovenox on hold for [facility] 10/05
GI PPX: protonix
Code Status:� Full
Anticipated Discharge: Within 24 hours
Subjective/Interval History
-
Date of Service: October 07, 2023
pt feels good, waiting for cardiac cath
Objective Data
-
Labs:
Laboratory Results
10/07/23
04:04
WBC 7.8
Hgb 13.2
Hct 37.6 L
Plt Count 211
Sodium 137
Potassium 3.7
Chloride 105
Carbon Dioxide 23
BUN 18
Creatinine 0.9
Glucose 106 H
Calcium 8.5
Vital Signs:
max temp for 24 hours
10/07/23
07:24
Temp 98.6 F
Vital Signs
Temp Pulse Resp BP Pulse Ox
98.6 F 85 20 107/66 95
10/07/23 07:24 10/07/23 08:15 10/07/23 08:00 10/07/23 08:15 10/07/23 08:00
I&O
10/06/23 10/07/23 10/08/23
06:59 06:59 06:59
Intake Total 960 / 960
Balance 960 / 960
Review of Systems
-
All other systems: Reviewed and negative
Physical Exam
-
General: Well Developed, Well Nourished and No Apparent Distress
HEENT: Normocephalic and Atraumatic
Respiratory: Clear to Auscultation; Negative Wheezes or Rhonchi
Cardiac: Regular Rhythm and S1/S2; Negative Murmur
GI: Soft, Nontender, Nondistended and Normal Bowel Sounds
Musculoskeletal: No Clubbing, No Cyanosis and No Edema
--- NOTE | 2023-10-07 10:03 | CM ---
Addendum entered by Yadira Espinal 10/07/23 17:19:
per [employer] entresto and jardiance both covered at 0$ and Farxigia is not covered by patient insurance.
Addendum entered by Yadira Espinal 10/07/23 10:11:
IMM forms left in patient room for review when patient returns.
Addendum entered by Yadira Espinal 10/07/23 10:09:
patient out to testing, nursing updated as well as hospitalist that cost of medications Entresto and Jardiance both were O$ per [employer].
Original Note:
Patient seen at bedside with physician and grandson. Patient for cardiac cath today. Patient is no longer on O2. CM will continue to follow for discharge planning needs.
Plan; home with VN vs home with no needs. pending outcome of testing.
--- NOTE | 2023-10-07 11:04 | PTCARENOTE ---
pathology laboratory technologist given report at 09:30, pt sent to labor and employment paralegal with 2 RNs at 09:40. Report rec'd from RN at 10:55, pt returned to room at 11:00. Pt and grandson educated on plan of care and post cath instructions. Right groin site CDI, no oozing/hematoma
noted. See worklist for vascular/site checks.
--- NOTE | 2023-10-07 11:06 | W.PN.CARDCBS ---
Addendum entered and electronically signed by Guillermo Lewis MD 10/07/23 14:09:
Discussed with daughter via [employer]. She is is a nurse currently in the [facility] and flying home this week. Grandson in room.
She would prefer to avoid additional procedures until she can be back in the country. In addition, the patient is feeling relatively well and not anxious to undergo additional procedures at this time.
Given that it is possible that mitral regurgitation is secondary to LV dysfunction, it is reasonable to hold off on transesophageal echo, optimize GDMT and then reassess as an outpatient. Patient and daughter would prefer this strategy at this time.
Therefore, we will cancel transesophageal echo for tomorrow. Continue optimization of GDMT. Mobilize patient and begin discharge planning.
We will reassess as an outpatient. My suspicion is that left bundle branch block is a significant underlying issue and ultimately if EF remains depressed and if mitral regurgitation improves with GDMT, FARM TRACTOR MECHANIC may be the most important therapeutic
option. If severe mitral regurgitation persists, need to consider for MitraClip.
Original Note:
Today's Communication / Plan
-
Possible GINNA tomorrow
And spironolactone 12.5 mg daily and furosemide 20 mg a day
Consider Entresto and Jardiance based on affordability and blood pressure
Impression / Plan
-
PCP: In [place], [place]
Cardiology: None prior to admission
Impression:
Acute hypoxemic respiratory insufficiency, improved
Possible AE COPD
Acute HFrEF; new diagnosis, EF 20-25%
Cardiomyopathy, unclear etiology
Chest pain, in setting of resp distress; troponin negative x3
HTN
LBBB of unknown chronicity
Echo 10/04/23: LVEF 20-25%, global hypokinesis, septal dyskinesis with LBBB; G2DD; dilated LA/RA; mod-sev MR, mild AI, mild-mod TR with PASP 48mmHg, pleural effusion, trivial pericardial effusion
Plan:
He is back from cardiac catheterization, PCW is now 19, LV is dilated with 2+ mitral regurgitation and without obstructive CAD.
Appreciate efforts of Dr. Crane
He has a nonischemic cardiomyopathy, possibly related to left bundle branch block, possibly related to MR though MR could be secondary rather than primary.
Will continue to optimize medical therapy. Add spironolactone 12.5 mg daily. He is not on standing dose of Lasix will start 20 mg daily. Consider Entresto, consider Jardiance if affordable.
Currently he is scheduled for transesophageal echocardiography in the a.m. It might also be reasonable to continue medical therapy and then set up follow-up echo either transthoracic or transesophageal as an outpatient after GDMT.
He would potentially be a candidate for MitraClip if MR is severe, and may also benefit from FARM TRACTOR MECHANIC-D if his ejection fraction remains low.
Will discuss with noninvasive cardiology.
PREADMIT DATA
Patient came to [facility] 10/02 with complaints of chest tightness and SOB and cardiology is now consulted for possible acute HF. Patient lives in [place], [place], but is staying locally with family for the next 2 months after a new great-grandchild was
born recently. Family reports that he seemed to catch a cold last week with coughing and congestion, but no fevers or SOB. Then last night he started to appear winded and complained of SOB and MOORE. No orthopnea and no edema. Family brought him to
[facility] and initially he was given a neb treatment and felt worse. He was then given Lasix 40 mg IV x1, Ativan and put on BiPAP and family reports that he finally started to feel better. There is no h/o CAD or CHF. NO previous cardiac testing. He
remains symptomatically improved 10/03.
Progress Note - Free Lance Model
Subjective
Date of Service: October 07, 2023:
Allergies none
Outpatient medications: Amlodipine 10 mg a day, vitamins, tamsulosin 0.4 mg daily
Current medications ceftriaxone, Xopenex, tamsulosin 0.4 mg daily, doxycycline 100 mg every 12, subcu Lovenox, guaifenesin, pantoprazole, carvedilol 3.125 twice daily, lisinopril 5 mg daily, aspirin 81 mg daily
PMH/PSH/FH/SH: Reviewed
Review of systems negative except as above
White count 13.2, BUN and creatinine 18 and 0.9, potassium 3.7
proBNP was 2020, troponin was 0.033
Chest x-ray mild vascular congestion cardiomegaly
Objective
Labs:
10/07/23 04:04
10/07/23 04:04
Labs
Hgb 13.2 g/dL (13.0-18.0) 10/07/23 04:04
Hct 37.6 % (39.0-52.0) L 10/07/23 04:04
Plt Count 211 10^3/uL (130-400) 10/07/23 04:04
PT 13.3 Sec (11.4-14.6) 10/03/23 18:14
INR 1.03 10/03/23 18:14
APTT 28.6 Sec (23.4-35.0) 10/03/23 18:14
Sodium 137 mmol/L (135-145) 10/07/23 04:04
Potassium 3.7 mmol/L (3.5-5.1) 10/07/23 04:04
BUN 18 mg/dl (9-20) 10/07/23 04:04
Creatinine 0.9 mg/dL (0.7-1.3) 10/07/23 04:04
Glucose 106 mg/dl (70-99) H 10/07/23 04:04
Vital Signs and I&O:
Vital Signs
Temp Pulse Resp BP Pulse Ox
36.9 C 85 20 107/66 95
10/07/23 11:03 10/07/23 08:15 10/07/23 08:00 10/07/23 08:15 10/07/23 08:00
Vital Signs
Temp Pulse Resp BP Pulse Ox
36.9 C 85 20 107/66 95
10/07/23 11:03 10/07/23 08:15 10/07/23 08:00 10/07/23 08:15 10/07/23 08:00
Intake & Output
10/05/23 10/06/23 10/07/23 10/08/23
07:59 07:59 07:59 07:59
Intake Total 250 / 250 960 / 960
Output Total 150 / 150
Balance 100 / 100 960 / 960
Physical Exam
Physical Exam
107/66, pulse 85, respiratory 20, afebrile, sats 95%
Grandson at bedside, no distress, head neck exam unremarkable, lungs are clear, soft MR murmur, JVD okay, abdomen benign, extremities without clubbing cyanosis or edema, neuro nonfocal
[2023-10-07] MEDS: ALDACTONE 12.5 MG PO (14:03)
--- NOTE | 2023-10-07 14:36 | PTCARENOTE ---
VSS, all post cath site checks remain WNL. Pt assisted oob to use bathroom and sit in chair to eat lunch. Pt now back in bed resting. Plan of care discussed with Dr. Rosas and beth at bedside.
--- NOTE | 2023-10-07 16:43 | PTCARENOTE ---
Addendum entered by Alex Elias RN 10/07/23 17:38:
17:00-Report given to SHANNON Ritter on . Pt transfered to new room with grandson and all belongings.
Original Note:
16:30-Pt with clean room assigned [phone] to call report, RN will call back when able.
--- NOTE | 2023-10-07 17:00 | TRANSFER ---
Pt transfered to
[2023-10-07] MEDS: FLOMAX 0.400000000000000022 MG PO (17:08)
[2023-10-07] MEDS: ROCEPHIN 1000 MG IV (19:58)
[2023-10-07] MEDS: STERILE WATER FOR INJECTION 10 ML IV (19:58)
--- NOTE | 2023-10-08 03:38 | DOWNTIME ---
There was a [employer] Client Voltmeter Operator Downtime on 10/08/2023 from 0100 to 10/08/2023 at 0322. Downtime documentation of patient's care, including medication administrations, has been reconciled in the electronic record per guidelines. Refer to the
patient's paper chart under the miscellaneous tab to see printed paper medication records and downtime forms.
[2023-10-08 03:53] VITALS: BP 117/67
[2023-10-08 06:00] VITALS: BMI 24.4
[2023-10-08 07:50] LABS: Hematocrit 44.1 % (39.0-52.0); Hemoglobin 14.7 g/dL (13.0-18.0); Mean Corp Hgb Conc. 33.3 g/dL (33.0-37.0); Mean Corpuscular Hgb 30.4 pg (27.0-31.0); Mean Corpuscular Volume 91.3 fL (80.0-94.0); Mean Platelet Volume 10.3 fL (7.4-10.4); Platelet Count 227 10^3/uL (130-400); Red Blood Cell Count 4.83 10^6/uL (4.70-6.10); Red Cell Dist. Width 13.6 % (11.5-14.5); White Blood Cell Count 8.3 10^3/uL (4.8-10.8)
[2023-10-08] MEDS: XOPENEX 0.63 MG INHALANT SOLUTION 0.630000000000000004 MG INH (08:08)
[2023-10-08 08:11] VITALS: BP 128/74
[2023-10-08 08:21] LABS: Blood Urea Nitrogen 16 mg/dl (9-20); Calcium 8.8 mg/dl (8.4-10.2); Carbon Dioxide 24 mmol/L (22-30); Chloride 107 mmol/L (98-107); Estimated Creatinine Clearance 50 ml/min; Glucose 106 mg/dl (70-99); Magnesium 2.1 mg/dl (1.6-2.3); Phosphorus 4.8 mg/dl (2.5-4.5); Sodium 137 mmol/L (135-145); eGFR > 60.00
[2023-10-08] MEDS: COREG 3.125 MG PO (08:53)
[2023-10-08] MEDS: LASIX 20 MG PO (08:54)
[2023-10-08] MEDS: VIBRAMYCIN 100 MG PO (08:54)
[2023-10-08] MEDS: ALDACTONE 12.5 MG PO (08:54)
[2023-10-08] MEDS: MUCINEX 1200 MG PO (08:54)
[2023-10-08] MEDS: PROTONIX 40 MG PO (08:54)
[2023-10-08] MEDS: ZESTRIL 5 MG PO (08:54)
[2023-10-08] MEDS: OSCAL CAL 500 500 MG PO (08:54)
[2023-10-08] MEDS: ASPIR LOW (ENTERIC COATED) 81 MG PO (08:54)
[2023-10-08 12:14] VITALS: BP 103/65
--- NOTE | 2023-10-08 13:08 | W.PN.HOSP.TC ---
Today's Communication/Plan
-
d/c
Assessment / Plan
Assessment / Plan
Patient is an 83y M Turkmen Tagalog speaking with PMH significant for hypertension who presents to ED complaining of SOB and chest tightness after one week of cold symptoms.
Acute Hypoxic Insufficiency/Failure due to Atypical Pneumonia, acute COPD exacerbation and acute systolic CHF exacerbation--OFF O2--for left heart cath given echo findings--on rocephin and doxy-- COVID/Influenza negative in the ED- Supportive care
including nebs, mucolytics, O2 support--Xopenex scheduled and prn--CT chest appreciated no PE, b/l moderate pleural effusion, IR eval appreciated R thoracentesis 1L fluid removed 10/04 transudative, pathology pending
Chest Tightness resolved- Possibly secondary to cough/ congestion as noted above vs fluid overload pleural effusion-improved with bronchodilators, diuresis as per cardio, abx - Troponin neg x 3�- EKG with sinus tach and no acute ischemic changes.
Possible HF as suggested on CXR and elevated BNP, confirmed with ECHO HFrEF--ECHO appreciated EF 20-25% stage II diastolic dysfunction mod severe MR---Cardio eval appreciated cont Coreg ASA, for [facility]
Benign Hypertension- Stable.� Continue amlodipine with holding parameters.
Mild Hypocalcemia/Vit D wnl/low dose scheduled Calcium supplementation started 10/04
Mild Hypokalemia/replete for goal 4 with diuresis
DVT Prophylaxis:� SCD, Lovenox on hold for [facility] 10/05
GI PPX: protonix
Code Status:� Full
Anticipated Discharge: Today
Subjective/Interval History
-
Date of Service: October 08, 2023
pt ready for d/c
Objective Data
-
Labs:
Laboratory Results
10/08/23
06:54
WBC 8.3
Hgb 14.7
Hct 44.1
Plt Count 227
Sodium 137
Potassium 4.0
Chloride 107
Carbon Dioxide 24
BUN 16
Creatinine 0.9
Glucose 106 H
Calcium 8.8
Vital Signs:
max temp for 24 hours
10/08/23
08:11
Temp 98.2 F
Vital Signs
Temp Pulse Resp BP Pulse Ox
97.4 F 77 20 103/65 98
10/08/23 12:14 10/08/23 12:14 10/08/23 12:14 10/08/23 12:14 10/08/23 12:14
Review of Systems
-
All other systems: Reviewed and negative
Physical Exam
-
General: Well Developed, Well Nourished and No Apparent Distress
HEENT: Normocephalic and Atraumatic
Respiratory: Clear to Auscultation; Negative Wheezes or Rhonchi
Cardiac: Regular Rhythm and S1/S2; Negative Murmur
GI: Soft, Nontender, Nondistended and Normal Bowel Sounds
Musculoskeletal: No Clubbing, No Cyanosis and No Edema
Skin: Warm
Neuro: Awake
--- NOTE | 2023-10-08 13:10 | CM ---
Patient seen at bedside with family, no VN requested per patient daughter and grandson to transport. Patient signed IMM following review with patient daughter and grandson. Patient for discharge home with no needs today. CM will continue to follow
for discharge planning needs.
Plan; home with no needs.
--- NOTE | 2023-10-08 13:17 | W.PN.CARDCBS ---
Addendum entered and electronically signed by Armand Bergman MD 10/08/23 13:49:
I saw and examined the patient.
The DOWEL SETTING MACHINE OPERATOR or PA's note was reviewed and I agree with the note.
Comment: General: Well developed, well nourished in NAD.
Neck: Supple, no JVD, HJR, carotids +2 B/L, no bruits bilaterally.
Heart: Non displaced PMI, RRR, no murmurs, No S3, S4, no rubs.
Lungs: scattered rhonchi
Extremities: No clubbing, cyanosis or edema bilaterally.
Neuro: Grossly nonfocal, awake, alert and oriented x3.
stable cardiology status for d/c. d/c on lasix 20 mg daily. changing to entresto on Sat 10/10. will arrange f/u
Original Note:
Today's Communication / Plan
-
Med changes outlined, switching from lisinopril to Entresto
Arranging for local cardiology f/u as he will be in the area for the next 2 months
Impression / Plan
-
PCP: In [place], [place]
Cardiology: None prior to admission
Impression:
Acute hypoxemic respiratory insufficiency, improved
Possible AE COPD
Acute HFrEF
Newly diagnosed NICM EF 20-25%
Moderate to severe MR
Chest pain, in setting of resp distress; troponin negative x3
HTN
LBBB of unknown chronicity
Echo 10/04/23: LVEF 20-25%, global hypokinesis, septal dyskinesis with LBBB; G2DD; dilated LA/RA; mod-sev MR, mild AI, mild-mod TR with PASP 48mmHg, pleural effusion, trivial pericardial effusion
Plan:
-Weight is down 9 lbs this admission with Lasix IV diuresis. Patient was not taking a diuretic prior to admission. Recommend Lasix 20 mg PO daily upon discharge.
-CHF, CM, LBBB and MR are all new diagnoses this admission. Reviewed with patient's daughter and granddaughter. Patient lives in [place], [place], but is visiting locally for the next 2 months following the of a great-grandchild. Will arrange
for cardiology follow up in our office.
-GDMT for CM to include Coreg 3.125 mg BID which is new this admission.
-New to lisinopril this admission. Appreciate help of CM in determining that Entresto has a $0 co-pay. Will stop lisinopril now, last dose 10/08/23 AM. Patient will start Entresto 24/26 mg BID on 10/11/23.
-New to spironolactone 12.5 mg daily
-New to Jardiance 10 mg daily
-Check BMP in 1 week as an outpatient
-Family declining VN so will arrange for a 1 week HF follow up in cardiology office
-Will need repeat echo as an outpatient to assess response to medical therapy and if MR persists then could consider MitraClip evaluation at that time.
HPI: Patient came to [facility] 10/02 with complaints of chest tightness and SOB and cardiology is now consulted for possible acute HF. Patient lives in [place], [place], but is staying locally with family for the next 2 months after a new great-grandchild
was born recently. Family reports that he seemed to catch a cold last week with coughing and congestion, but no fevers or SOB. Then last night he started to appear winded and complained of SOB and MOORE. No orthopnea and no edema. Family brought him
to [facility] and initially he was given a neb treatment and felt worse. He was then given Lasix 40 mg IV x1, Ativan and put on BiPAP and family reports that he finally started to feel better. There is no h/o CAD or CHF. NO previous cardiac testing. He
remains symptomatically improved 10/03.
Progress Note - Lace Sewer
Subjective
Date of Service: October 08, 2023
He feels well and wants to go home
Objective
Labs:
10/08/23 06:54
10/08/23 06:54
Labs
Hgb 14.7 g/dL (13.0-18.0) 10/08/23 06:54
Hct 44.1 % (39.0-52.0) 10/08/23 06:54
Plt Count 227 10^3/uL (130-400) 10/08/23 06:54
PT 13.3 Sec (11.4-14.6) 10/03/23 18:14
INR 1.03 10/03/23 18:14
APTT 28.6 Sec (23.4-35.0) 10/03/23 18:14
Sodium 137 mmol/L (135-145) 10/08/23 06:54
Potassium 4.0 mmol/L (3.5-5.1) 10/08/23 06:54
BUN 16 mg/dl (9-20) 10/08/23 06:54
Creatinine 0.9 mg/dL (0.7-1.3) 10/08/23 06:54
Glucose 106 mg/dl (70-99) H 10/08/23 06:54
Vital Signs and I&O:
Vital Signs
Temp Pulse Resp BP Pulse Ox
97.4 F 77 20 103/65 98
10/08/23 12:14 10/08/23 12:14 10/08/23 12:14 10/08/23 12:14 10/08/23 12:14
Vital Signs
Temp Pulse Resp BP Pulse Ox
97.4 F 77 20 103/65 98
10/08/23 12:14 10/08/23 12:14 10/08/23 12:14 10/08/23 12:14 10/08/23 12:14
Intake & Output
10/06/23 10/07/23 10/08/23 10/09/23
06:59 06:59 06:59 06:59
Intake Total 960 / 960
Balance 960 / 960
Physical Exam
Physical Exam
GEN: NAD
HEENT: MMM
LUNGS: No audibel wheeze
CV: Reg
ABD: ND
EXT: No edema B/L
NEURO: Gross non-focal
SKIN: No rash
--- NOTE | 2023-10-08 19:20 | W.DCSUMMARY ---
Discharge Summary
Discharge Data
Date of Admission: 10/03/23
Date of Discharge: 10/08/23
-
Pending Results: No
Hospital Course
Primary care physician : Not Listed
Principal Discharge diagnosis : Acute hypoxemic respiratory insufficiency/failure due to acute systolic congestive heart failure exacerbation with mild component of atypical pneumonia and acute chronic obstructive pulmonary disease exacerbation
Chronic Discharge diagnosis : Essential hypertension, hypocalcemia/hypokalemia
Hospital Course : Patient was an 83-year-old male who presented with complaints of cough and shortness of breath. Patient was very hard of hearing and does not speak Haitian well. Patient was dealing with 'cold symptoms' for the past week
including runny nose, cough, mucus production. He is visiting from [place] for a of her grandchild. He complained of chest tightness and difficulty breathing. He had audible wheezing at the bedside. Patient was admitted.
Problem #1: Acute hypoxemic respiratory insufficiency/failure. Patient was admitted and seen in consultation by cardiology. He was initially started on Rocephin and doxycycline. COVID and influenza were negative. He was given nebulizers
mucolytic's and oxygen. Oxygen was able to be weaned off. This did not seem to be due to pneumonia or acute chronic obstructive pulmonary disease exacerbation but rather due to acute systolic congestive heart failure exacerbation. Patient had an
echocardiogram done which showed an ejection fraction of 20 to 25% with stage II diastolic dysfunction, moderate to severe mitral regurgitation and global hypokinesis. Because of this, he was referred for left and right heart catheterization. As
per the performing provider, wedge pressure was elevated at 19, dilated left ventricle with 2+ mitral regurgitation and no significant coronary artery disease. GINNA was recommended to evaluate the moderate to severe mitral regurgitation. It would
appear that he is too frail for surgical mitral repair but may be a MitraClip candidate. It was subsequently decided against and medical management was favored. Patient was given IV Lasix and his weight was down at least 9 pounds this admission.
He was weaned off oxygen. The recommendation was for Lasix 20 mg daily, lisinopril which was stopped in favor of Entresto, spironolactone, Jardiance. He should follow-up with cardiology and appointment was given to him. Patient also underwent
thoracentesis for pleural fluid. 1000 mL was removed. This was negative for malignant cells. He was initially started on Rocephin and doxycycline but these were stopped in favor of treating for heart failure.
Problem #2: All other medical issues. These include Essential hypertension, hypocalcemia/hypokalemia. These medical issues were stable during his hospitalization. Medications were continued as able.
Patient is stable to return home with his family at this time. If there are any questions regarding this dictation or his hospital stay, please not hesitate to call. Our office number is [phone]. Patient's family refused visiting nurses.
Time for discharge 40 minutes.
Procedure findings :
ECHO CONCLUSIONS:
Normal left ventricular chamber size. Severely reduced left ventricular
systolic function. Global hypokinesis. Abnormal septal bounce consistent with
left bundle branch block. Normal left ventricular wall thickness. Left
ventricular ejection fraction is 20-25% by visual estimate. Stage II diastolic
dysfunction suggestive of abnormal relaxation and increased filling pressures.
Normal right ventricular size and function.
Indexed LA volume is moderately abnormal (42-48 mL/m2).
Mildly dilated right atrium.
Moderate to severe mitral regurgitation.
Trileaflet aortic valve. Mild focal thickening. Aortic valve opens normally.
Mild aortic regurgitation.
Mild to moderate tricuspid regurgitation. Estimated pulmonary artery pressure
of 48 mmHg assuming a right atrial pressure of 3 mmHg.
Trivial pericardial effusion. Pleural effusion noted.
The aortic root is of normal size. Aortic arch not well visualized.
The IVC is of normal size and demonstrates normal respiratory variation.
Interatrial septum is intact with no evidence of shunting by color flow
Doppler. No intracardiac mass or thrombus formation seen.
No prior study for comparison.
Discharge Plan
-
Patient Disposition: Home (Routine Discharge)
Discharge Diagnosis/Procedures: Acute hypoxemic insufficiency resolved due to acute chronic obstructive pulmonary disease exacerbation and acute systolic congestive heart failure exacerbation, essential hypertension, hypocalcemia, hypokalemia
Condition: Good
Diet: 2 Gram Sodium and Restrict fluids to 48 oz
Activity: As tolerated
Driving Restrictions: No driving
Bathing Restrictions: None
Blood Work: Non-fasting blood work in 1 week to check kidney function
Specialty Instructions: Weigh Daily- Call MD for wt gain/loss 3 lbs overnight/5 lbs in 1 week
Instructions: *PCP/Other Classroom Paraprofessional Heart Failure Instructions
Referrals:
UNKNOWN - PT DOES,NOT KNOW [Family Provider] - in less than 1 week
Rico Sanchez, DO [Active] - 10/15/23 9:40 am (You have an appt to see the cardiology office on 10/15/23 at 0:40 AM. Please call [phone] if you need to reschdule.)
Additional Discharge Medication Instructions: -Wait to start taking Entresto 24/26 mg twice a day until the morning of 10/11/23.
-STOP taking amlodipine (Norvasc), it has been replaced with other medications that will help to make the heart stronger.
Prescriptions:
New
carvedilol 3.125 mg Tablet
3.125 mg PO BID Qty: 60 11RF
furosemide 20 mg Tablet
20 mg PO DAILY Qty: 30 11RF
Jardiance 10 mg tablet
10 mg PO DAILY Qty: 30 11RF
Entresto 24-26 mg tablet
1 tab PO BID Qty: 60 11RF
spironolactone 25 mg Tablet
12.5 mg PO DAILY Qty: 30 11RF
calcium carbonate [Oyster Shell Calcium 500] 500 mg calcium (1,250 mg) Tablet
500 mg PO DAILY Qty: 0 0RF
pantoprazole 40 mg Tablet,Delayed Release (Dr/Ec)
40 mg PO DAILY Qty: 30 0RF
Continued
acetaminophen 325 mg Tablet
650 mg PO HS
tamsulosin 0.4 mg capsule
0.4 mg PO QPM
[id number]-vnx-CE-Ba-Xx-syvulop-lutein 0.4-162-18 mg Tablet
1 tab PO DAILY
Discontinued
amlodipine 5 mg tablet
10 mg PO DAILY
Discharge Orders:
Discharge Patient (As Directed); Ordered 10/08/23
Ordered By: Brooke Carrizales
Discharge Date and Time
Discharge Date/Time: 10/08/23 15:36
Print Language: CYPRIOT
== END 2023-10-08 15:36 | disposition home or self-care (01) | DRG 286 ==
LOC: 4 WEST ACU 20:20
PROVIDERS: Internal Medicine; Internal Medicine Cardiovascular Disease; Radiology Vascular & Interventional Radiology; Registered Nurse; ADMITTING PHYSICIAN Hospitalist; ATTENDING PHYSICIAN Internal Medicine; CONSULT PHYSICIAN Internal Medicine Cardiovascular Disease; EMERGENCY PHYSICIAN Emergency Medicine
PROC: 0W993ZZ Drainage of Right Pleural Cavity, Percutaneous Approach (ICD-10-PCS; 2023-10-05)
PROC: B2111ZZ Fluoroscopy of Multiple Coronary Arteries using Low Osmolar Contrast (ICD-10-PCS; 2023-10-07)
PROC: B2151ZZ Fluoroscopy of Left Heart using Low Osmolar Contrast (ICD-10-PCS; 2023-10-07)
PROC: 4A023N8 Measurement of Cardiac Sampling and Pressure, Bilateral, Percutaneous Approach (ICD-10-PCS; 2023-10-07)
DX: I11.0 Hypertensive heart disease with heart failure (principal); I50.23 Acute on chronic systolic (congestive) heart failure; J18.9 Pneumonia, unspecified organism; J96.01 Acute respiratory failure with hypoxia; J44.0 Chronic obstructive pulmonary disease with (acute) lower respiratory infection; J44.1 Chronic obstructive pulmonary disease with (acute) exacerbation; J90 Pleural effusion, not elsewhere classified; E87.6 Hypokalemia; E83.51 Hypocalcemia; H91.90 Unspecified hearing loss, unspecified ear; I34.0 Nonrheumatic mitral (valve) insufficiency; I44.7 Left bundle-branch block, unspecified; I08.1 Rheumatic disorders of both mitral and tricuspid valves
CPT/HCPCS: 88305; 32555; 71045; 71275; 80048; 80053; 80061; 82150; 82306; 82945; 83615; 83735; 83880; 83986; 84100; 84157; 84443; 84478; 84484; 85025; 85027; 85610; 85730; 87015; 87070; 87205; 87502; 87811; 88112; 89051; 93005; 93306; 93460; 94640; 94660; 94667; 94668; 96361; 96365; 96375; 97116; 97162; 97166; 97535; 99291; C1760; C1894; Q9967

== ENCOUNTER → 2024-01-07 09:54 | Outpatient (REF) | payer MEDICARE, SELFPAY | LOC: RCS 09:54 | PROVIDERS: ATTENDING PHYSICIAN Physician Assistant; REFERRING PHYSICIAN Internal Medicine Cardiovascular Disease | DX: I50.20 Unspecified systolic (congestive) heart failure (principal); I42.8 Other cardiomyopathies; I34.0 Nonrheumatic mitral (valve) insufficiency | CPT/HCPCS: 93306 ==